=== PATIENT | male | born 1975 | race Two or more races ===

== ENCOUNTER 2021-06-07 22:49 | Inpatient (IN) | payer MEDICAID, OTHER ==
[~2021-06-07] VITALS: Ht 177.8 cm; Wt 84.8 kg
[2021-06-07] MEDS ORDERED: SODIUM CHLORIDE 0.9% 1000ML BAG (SEPSIS BOLUS) IV ONE (23:30)
[2021-06-07 23:39] LABS: CHLORIDE 114 mEq/L (98-107); HEMOGLOBIN. 12.3 g/dL (14.0-18.0); MEAN CORPUSCULAR HEMOGLOBIN 29.9 pg (28.0-32.0); MEAN CORPUSCULAR VOLUME 89.9 fL (80.0-94.0); MEAN PLATELET VOLUME 8.2 fl (7.4-10.4); PLATELET 283 x1000/uL (130-400); RED BLOOD CELL COUNT 4.11 mill/uL (4.7-6.1); RED CELL DISTRIBUTION WIDTH 14.3 % (11.6-14.6)
[2021-06-07 23:43] LABS: ETHANOL BLOOD < 10 mg/dL
[2021-06-08] MEDS ORDERED: PIPERACILLIN/TAZOBACTAM 3.375GM/50ML PREMIX IV SCH (00:15)
[2021-06-08] MEDS ORDERED: VANCOMYCIN 1G PREMIX 200 ML IV SCH (00:15)
[2021-06-08 02:59] LABS: PLATELET ESTIMATE NORMAL
[2021-06-08] MEDS ORDERED: ACETAMINOPHEN 650MG SUPP PR ONE (03:30)
[2021-06-08] MEDS ORDERED: LORAZEPAM 2MG/ML CPJ IV PRN ×2 (07:45→09:15)
[2021-06-08] MEDS ORDERED: ONDANSETRON HCL 4MG/2ML INJ IV PRN (07:45)
[2021-06-08] MEDS ORDERED: ENOXAPARIN 40MG/0.4ML SYR SUBCUT SCH (07:45)
[2021-06-08] MEDS ORDERED: CLONIDINE 0.1MG TABLET PO PRN (07:45)
[2021-06-08] MEDS ORDERED: NALOXONE HCL 0.4MG/ML VIAL IV PRN ×2 (08:15→08:30)
[2021-06-08] MEDS: SODIUM CHLORIDE 0.9% 1,000 ML IV SCH ×2 (08:34→17:45)
[2021-06-08] MEDS: FOLIC ACID 1MG TABLET PO SCH (08:35)
[2021-06-08] MEDS: LEVOFLOXACIN 500MG PREMIX 100 ML IV SCH (08:35)
[2021-06-08] MEDS: ENOXAPARIN 30MG/0.3ML SYR SUBCUT SCH (09:00)
[2021-06-08] MEDS ORDERED: LEVETIRACETAM 500MG PREMIX 100 ML IV NR (09:15)
[2021-06-08 13:29] LABS: CLARITY URINE TURBID (CLEAR); COLOR URINE YELLOW (YELLOW); KETONES URINE 1+ (NEGATIVE); LEUKOCYTE ESTERASE URINE NEGATIVE (NEGATIVE); NITRITE URINE NEGATIVE (NEGATIVE); OCCULT BLOOD URINE NEGATIVE (NEGATIVE); PH URINE 5.5 (4.5-8.0); PROTEIN URINE NEGATIVE (NEGATIVE); SPECIFIC GRAVITY URINE 1.026 (1.005-1.030); UROBILINOGEN URINE 0.2 E.U./dL (0.2-1.0)
[2021-06-08 14:34] LABS: *AMPHETAMINES SCREEN URINE NEGATIVE (NEGATIVE); *BARBITURATES SCREEN URINE NEGATIVE (NEGATIVE); *BENZODIAZEPINES SCREEN URINE NEGATIVE (NEGATIVE); *COCAINE SCREEN URINE NEGATIVE (NEGATIVE); CANNABINOID URINE SCREEN NEGATIVE (NEGATIVE); METHADONE URINE SCREEN NEGATIVE (NEGATIVE); OPIATES URINE SCREEN NEGATIVE (NEGATIVE); PHENCYCLIDINE URINE SCREEN NEGATIVE (NEGATIVE)
[2021-06-08 14:59] LABS: CREATINE KINASE MB FRACTION 3.6 ng/mL (0.5-3.6)
[2021-06-08 15:09] LABS: CREATINE KINASE 2094 IU/L (39-308)
[2021-06-08] MEDS ORDERED: IPRATROPIUM BROMIDE (0.02%) 0.5MG/2.5ML NEB HHN PRN (18:15)
[2021-06-08] MEDS ORDERED: ALBUTEROL (0.5%) 2.5MG/0.5ML NEB HHN PRN (18:15)
[2021-06-08] MEDS: IPRATROPIUM/ALBUTEROL 0.5-3(2.5)MG/3ML NEB HHN PRN (19:20)
[2021-06-08 22:24] LABS: CREATINE KINASE MB FRACTION 3.8 ng/mL (0.5-3.6)
[2021-06-08 22:35] LABS: CREATINE KINASE 2851 IU/L (39-308)
[2021-06-09] VITALS (8 sets, daily range): BP systolic 119–144; BP diastolic 69–88
[2021-06-09] MEDS: SODIUM CHLORIDE 0.9% 1,000 ML IV SCH ×4 (01:37→22:31)
[2021-06-09] MEDS: MORPHINE SULFATE 2 MG/ML CPJ (NOT FOR IM USE) IV PRN ×2 (01:38→22:40)
[2021-06-09] MEDS: FOLIC ACID 1MG TABLET PO SCH (08:54)
[2021-06-09] MEDS: ENOXAPARIN 30MG/0.3ML SYR SUBCUT SCH (10:44)
[2021-06-09 11:00] LABS: BASOPHILS % 0.1 % (0.0-2.0); EOSINOPHILS % 0.1 % (0.0-5.0); HEMATOCRIT. 36.6 % (42.0-52.0); HEMOGLOBIN. 12.1 g/dL (14.0-18.0); LYMPHOCYTES % 8.7 % (20.0-50.0); MEAN CORPUSCULAR HEMOGLOBIN 29.8 pg (28.0-32.0); MEAN CORPUSCULAR VOLUME 90.4 fL (80.0-94.0); MEAN PLATELET VOLUME 8.3 fl (7.4-10.4); MONOCYTES % 7.1 % (2.0-8.0); PLATELET 232 x1000/uL (130-400); RED BLOOD CELL COUNT 4.05 mill/uL (4.7-6.1); RED CELL DISTRIBUTION WIDTH 13.8 % (11.6-14.6)
[2021-06-09 11:08] LABS: CHLORIDE 109 mEq/L (98-107)
[2021-06-09 11:14] LABS: PHOSPHORUS 2.1 mg/dL (2.5-4.9)
[2021-06-09] MEDS: LEVOFLOXACIN 500MG PREMIX 100 ML IV SCH (11:20)
[2021-06-09] MEDS: IPRATROPIUM/ALBUTEROL 0.5-3(2.5)MG/3ML NEB HHN PRN (12:18)
[2021-06-09] MEDS: POTASSIUM CHLORIDE 20MEQ TABLET SR PO SCH (13:03)
[2021-06-09] MEDS: METHYLPREDNISOLONE SOD SUCC 125 MG/2 ML VIAL IV SCH ×2 (13:29→22:32)
[2021-06-09] MEDS: VANCOMYCIN 1G PREMIX 200 ML IV SCH (16:12)
[2021-06-10] VITALS: BP 138/96
[2021-06-10] MEDS: VANCOMYCIN 1G PREMIX 200 ML IV SCH ×2 (00:14→09:05)
[2021-06-10] MEDS: IPRATROPIUM/ALBUTEROL 0.5-3(2.5)MG/3ML NEB HHN PRN ×2 (00:57→12:49)
[2021-06-10] MEDS: ACETAMINOPHEN 325MG TABLET PO PRN ×3 (01:10→20:44)
[2021-06-10 04:00] VITALS: BP 125/78
[2021-06-10] MEDS: SODIUM CHLORIDE 0.9% 1,000 ML IV SCH ×3 (06:01→22:30)
[2021-06-10] MEDS: METHYLPREDNISOLONE SOD SUCC 125 MG/2 ML VIAL IV SCH (06:02)
[2021-06-10 08:00] VITALS: BP 127/79
[2021-06-10] MEDS: POTASSIUM CHLORIDE 20MEQ TABLET SR PO SCH (09:04)
[2021-06-10] MEDS: ENOXAPARIN 40MG/0.4ML SYR SUBCUT SCH (09:04)
[2021-06-10] MEDS: FOLIC ACID 1MG TABLET PO SCH (09:05)
[2021-06-10] MEDS: MORPHINE SULFATE 2 MG/ML CPJ (NOT FOR IM USE) IV PRN ×2 (09:06→15:03)
[2021-06-10 10:32] LABS: CHLORIDE 108 mEq/L (98-107)
[2021-06-10 12:00] VITALS: BP 147/83
[2021-06-10] MEDS: LEVOFLOXACIN 500MG PREMIX 100 ML IV SCH ×2 (12:28→12:33)
[2021-06-10 15:22] LABS: CREATINE KINASE 1087 IU/L (39-308)
[2021-06-10 16:00] VITALS: BP 119/68
[2021-06-10 20:00] VITALS: BP 125/74
[2021-06-10] MEDS: LEVETIRACETAM 500MG TABLET PO SCH (20:44)
[2021-06-11] VITALS: BP 124/79
[2021-06-11] MEDS: ACETAMINOPHEN 325MG TABLET PO PRN (00:19)
[2021-06-11 04:00] VITALS: BP 121/79
[2021-06-11 08:00] VITALS: BP 113/73
[2021-06-11] MEDS: HYDROCODONE/ACETAMINOPHEN 5/325MG TABLET PO PRN ×2 (08:47→16:15)
[2021-06-11] MEDS: LEVETIRACETAM 500MG TABLET PO SCH ×2 (08:47→20:54)
[2021-06-11] MEDS: FOLIC ACID 1MG TABLET PO SCH (08:47)
[2021-06-11] MEDS: ENOXAPARIN 40MG/0.4ML SYR SUBCUT SCH (08:47)
[2021-06-11] MEDS: POTASSIUM CHLORIDE 20MEQ TABLET SR PO SCH (08:48)
[2021-06-11] MEDS: SODIUM CHLORIDE 0.9% 1,000 ML IV SCH (10:10)
[2021-06-11] MEDS: LEVOFLOXACIN 500MG PREMIX 100 ML IV SCH (10:11)
[2021-06-11 12:00] VITALS: BP 102/62
[2021-06-11 16:00] VITALS: BP 121/78
[2021-06-11 20:00] VITALS: BP 137/82
[2021-06-12] VITALS: BP 139/91
[2021-06-12 04:00] VITALS: BP 118/69
[2021-06-12] MEDS: SODIUM CHLORIDE 0.9% 1,000 ML IV SCH (05:49)
[2021-06-12] MEDS: FOLIC ACID 1MG TABLET PO SCH (08:17)
[2021-06-12] MEDS: LEVETIRACETAM 500MG TABLET PO SCH ×2 (08:17→20:06)
[2021-06-12] MEDS: LEVOFLOXACIN 500MG PREMIX 100 ML IV SCH (08:17)
[2021-06-12] MEDS: POTASSIUM CHLORIDE 20MEQ TABLET SR PO SCH (08:17)
[2021-06-12] MEDS: ENOXAPARIN 40MG/0.4ML SYR SUBCUT SCH (08:21)
[2021-06-12 08:33] VITALS: BP 127/84
[2021-06-12 12:00] VITALS: BP 132/81
[2021-06-12 16:00] VITALS: BP 133/87
[2021-06-12 20:00] VITALS: BP 128/82
[2021-06-13] VITALS: BP 119/80
[2021-06-13] MEDS: SODIUM CHLORIDE 0.9% 1,000 ML IV SCH ×2 (02:10→21:14)
[2021-06-13 04:00] VITALS: BP 127/87
[2021-06-13 08:00] VITALS: BP 96/64
[2021-06-13] MEDS: FOLIC ACID 1MG TABLET PO SCH (09:53)
[2021-06-13] MEDS: POTASSIUM CHLORIDE 20MEQ TABLET SR PO SCH (09:53)
[2021-06-13] MEDS: LEVETIRACETAM 500MG TABLET PO SCH ×2 (09:53→20:17)
[2021-06-13] MEDS: ENOXAPARIN 40MG/0.4ML SYR SUBCUT SCH (09:54)
[2021-06-13 12:00] VITALS: BP 112/73
[2021-06-13 13:26] LABS: BASOPHILS % 0.2 % (0.0-2.0); EOSINOPHILS % 2.2 % (0.0-5.0); HEMATOCRIT. 40.9 % (42.0-52.0); HEMOGLOBIN. 13.1 g/dL (14.0-18.0); LYMPHOCYTES % 12.2 % (20.0-50.0); MEAN CORPUSCULAR HEMOGLOBIN 28.7 pg (28.0-32.0); MEAN CORPUSCULAR VOLUME 89.6 fL (80.0-94.0); MEAN PLATELET VOLUME 8.3 fl (7.4-10.4); MONOCYTES % 9.6 % (2.0-8.0); NEUTROPHILS % 75.8 % (40.0-76.0); PLATELET 236 x1000/uL (130-400); RED BLOOD CELL COUNT 4.56 mill/uL (4.7-6.1); RED CELL DISTRIBUTION WIDTH 13.9 % (11.6-14.6)
[2021-06-13 13:39] LABS: CHLORIDE 106 mEq/L (98-107)
[2021-06-13 16:00] VITALS: BP 112/68
[2021-06-13 20:00] VITALS: BP 115/73
[2021-06-14] VITALS: BP 110/76
[2021-06-14 04:00] VITALS: BP 116/72
[2021-06-14 08:00] VITALS: BP 107/74
[2021-06-14] MEDS: LEVETIRACETAM 500MG TABLET PO SCH ×2 (09:10→21:28)
[2021-06-14] MEDS: FOLIC ACID 1MG TABLET PO SCH (09:10)
[2021-06-14] MEDS: POTASSIUM CHLORIDE 20MEQ TABLET SR PO SCH (09:10)
[2021-06-14] MEDS: ENOXAPARIN 40MG/0.4ML SYR SUBCUT SCH (09:11)
[2021-06-14 12:00] VITALS: BP 106/69
[2021-06-14 16:00] VITALS: BP 113/78
[2021-06-14] MEDS: SODIUM CHLORIDE 0.9% 1,000 ML IV SCH (17:56)
[2021-06-14 20:00] VITALS: BP 113/78
[2021-06-15] VITALS: BP 130/86
[2021-06-15 04:00] VITALS: BP 130/77
[2021-06-15 08:00] VITALS: BP 104/67
[2021-06-15] MEDS: ENOXAPARIN 40MG/0.4ML SYR SUBCUT SCH (10:27)
[2021-06-15] MEDS: FOLIC ACID 1MG TABLET PO SCH (10:27)
[2021-06-15] MEDS: LEVETIRACETAM 500MG TABLET PO SCH ×2 (10:27→21:35)
[2021-06-15] MEDS: POTASSIUM CHLORIDE 20MEQ TABLET SR PO SCH (10:27)
[2021-06-15 12:00] VITALS: BP 119/82
[2021-06-15] MEDS: SODIUM CHLORIDE 0.9% 1,000 ML IV SCH (13:23)
[2021-06-15 16:00] VITALS: BP 117/82
[2021-06-15 20:00] VITALS: BP 119/84
[2021-06-16] VITALS: BP 130/80
[2021-06-16 04:00] VITALS: BP 126/89
[2021-06-16 07:35] LABS: BASOPHILS % 0.5 % (0.0-2.0); EOSINOPHILS % 2.4 % (0.0-5.0); HEMATOCRIT. 40.4 % (42.0-52.0); HEMOGLOBIN. 13.6 g/dL (14.0-18.0); LYMPHOCYTES % 16.9 % (20.0-50.0); MEAN CORPUSCULAR HEMOGLOBIN 29.6 pg (28.0-32.0); MEAN CORPUSCULAR VOLUME 87.8 fL (80.0-94.0); MEAN PLATELET VOLUME 8.5 fl (7.4-10.4); MONOCYTES % 10.5 % (2.0-8.0); NEUTROPHILS % 69.7 % (40.0-76.0); PLATELET 238 x1000/uL (130-400); RED BLOOD CELL COUNT 4.61 mill/uL (4.7-6.1); RED CELL DISTRIBUTION WIDTH 13.2 % (11.6-14.6)
[2021-06-16 08:00] VITALS: BP 106/60
[2021-06-16 08:31] LABS: CHLORIDE 106 mEq/L (98-107)
[2021-06-16 08:41] LABS: PHOSPHORUS 3.2 mg/dL (2.5-4.9)
[2021-06-16] MEDS: POTASSIUM CHLORIDE 20MEQ TABLET SR PO SCH (09:49)
[2021-06-16] MEDS: ENOXAPARIN 40MG/0.4ML SYR SUBCUT SCH (09:49)
[2021-06-16] MEDS: LEVETIRACETAM 500MG TABLET PO SCH ×2 (09:49→20:05)
[2021-06-16] MEDS: FOLIC ACID 1MG TABLET PO SCH (09:49)
[2021-06-16] MEDS: SODIUM CHLORIDE 0.9% 1,000 ML IV SCH (09:53)
[2021-06-16 12:00] VITALS: BP 122/81
[2021-06-16 16:00] VITALS: BP 96/56
[2021-06-16 20:00] VITALS: BP 121/77
[2021-06-17] VITALS: BP 108/67
[2021-06-17 04:00] VITALS: BP 111/68
[2021-06-17] MEDS: SODIUM CHLORIDE 0.9% 1,000 ML IV SCH (06:10)
[2021-06-17 08:00] VITALS: BP 121/76
[2021-06-17] MEDS: ENOXAPARIN 40MG/0.4ML SYR SUBCUT SCH (09:59)
[2021-06-17] MEDS: FOLIC ACID 1MG TABLET PO SCH (09:59)
[2021-06-17] MEDS: LEVETIRACETAM 500MG TABLET PO SCH ×2 (09:59→20:46)
[2021-06-17] MEDS: POTASSIUM CHLORIDE 20MEQ TABLET SR PO SCH (09:59)
[2021-06-17 12:00] VITALS: BP 115/70
[2021-06-17 16:00] VITALS: BP 118/72
[2021-06-17 20:00] VITALS: BP 115/82
[2021-06-18] VITALS: BP 116/72
[2021-06-18] MEDS: SODIUM CHLORIDE 0.9% 1,000 ML IV SCH ×2 (01:40→21:10)
[2021-06-18 04:00] VITALS: BP 117/81
[2021-06-18 08:00] VITALS: BP 133/85
[2021-06-18] MEDS: ENOXAPARIN 40MG/0.4ML SYR SUBCUT SCH (09:50)
[2021-06-18] MEDS: LEVETIRACETAM 500MG TABLET PO SCH ×2 (09:50→21:08)
[2021-06-18] MEDS: POTASSIUM CHLORIDE 20MEQ TABLET SR PO SCH (09:50)
[2021-06-18] MEDS: FOLIC ACID 1MG TABLET PO SCH (09:50)
[2021-06-18 12:00] VITALS: BP 101/69
[2021-06-18] MEDS: ACETAMINOPHEN 325MG TABLET PO PRN (13:13)
[2021-06-18 16:00] VITALS: BP 110/73
[2021-06-18 20:00] VITALS: BP 104/68
[2021-06-19] VITALS: BP 106/70
[2021-06-19 04:00] VITALS: BP 100/73
[2021-06-19 07:47] VITALS: BP 120/72
[2021-06-19] MEDS: LEVETIRACETAM 500MG TABLET PO SCH ×2 (08:41→20:36)
[2021-06-19] MEDS: FOLIC ACID 1MG TABLET PO SCH (08:41)
[2021-06-19] MEDS: ENOXAPARIN 40MG/0.4ML SYR SUBCUT SCH (08:41)
[2021-06-19] MEDS: POTASSIUM CHLORIDE 20MEQ TABLET SR PO SCH (08:41)
[2021-06-19 12:00] VITALS: BP 110/71
[2021-06-19 15:35] VITALS: BP 131/71
[2021-06-19] MEDS: SODIUM CHLORIDE 0.9% 1,000 ML IV SCH (17:12)
[2021-06-19 20:00] VITALS: BP 114/78
[2021-06-20] VITALS: BP 110/69
[2021-06-20 04:00] VITALS: BP 117/72
[2021-06-20 08:00] VITALS: BP 114/79
[2021-06-20] MEDS: FOLIC ACID 1MG TABLET PO SCH (11:37)
[2021-06-20] MEDS: LEVETIRACETAM 500MG TABLET PO SCH ×2 (11:37→20:17)
[2021-06-20] MEDS: POTASSIUM CHLORIDE 20MEQ TABLET SR PO SCH (11:37)
[2021-06-20] MEDS: ENOXAPARIN 40MG/0.4ML SYR SUBCUT SCH (11:42)
[2021-06-20 12:00] VITALS: BP 114/79
[2021-06-20 16:00] VITALS: BP 120/68
[2021-06-20 20:00] VITALS: BP 115/64
[2021-06-21] VITALS: BP 134/92
[2021-06-21 04:00] VITALS: BP 132/98
[2021-06-21 07:25] LABS: BASOPHILS % 0.2 % (0.0-2.0); EOSINOPHILS % 0.9 % (0.0-5.0); HEMATOCRIT. 41.7 % (42.0-52.0); HEMOGLOBIN. 14.3 g/dL (14.0-18.0); LYMPHOCYTES % 13.6 % (20.0-50.0); MEAN CORPUSCULAR HEMOGLOBIN 29.7 pg (28.0-32.0); MEAN CORPUSCULAR VOLUME 86.8 fL (80.0-94.0); MEAN PLATELET VOLUME 8.7 fl (7.4-10.4); MONOCYTES % 6.6 % (2.0-8.0); NEUTROPHILS % 78.7 % (40.0-76.0); PLATELET 235 x1000/uL (130-400); RED BLOOD CELL COUNT 4.81 mill/uL (4.7-6.1); RED CELL DISTRIBUTION WIDTH 13.4 % (11.6-14.6)
[2021-06-21 07:47] LABS: CHLORIDE 104 mEq/L (98-107)
[2021-06-21 07:55] LABS: PHOSPHORUS 3.2 mg/dL (2.5-4.9)
[2021-06-21 08:00] VITALS: BP 143/74
[2021-06-21] MEDS: ENOXAPARIN 40MG/0.4ML SYR SUBCUT SCH (09:25)
[2021-06-21] MEDS: LEVETIRACETAM 500MG TABLET PO SCH ×2 (09:25→21:40)
[2021-06-21] MEDS: FOLIC ACID 1MG TABLET PO SCH (09:26)
[2021-06-21] MEDS: ACETAMINOPHEN 325MG TABLET PO PRN (09:37)
[2021-06-21 12:00] VITALS: BP 118/74
[2021-06-21 16:00] VITALS: BP 129/80
[2021-06-21] MEDS: IPRATROPIUM/ALBUTEROL 0.5-3(2.5)MG/3ML NEB HHN PRN (17:23)
[2021-06-21 20:00] VITALS: BP 121/77
[2021-06-22] VITALS: BP 120/78
[2021-06-22 04:00] VITALS: BP 115/67
[2021-06-22 08:00] VITALS: BP 133/94
[2021-06-22] MEDS: LEVETIRACETAM 500MG TABLET PO SCH ×2 (08:55→22:03)
[2021-06-22] MEDS: FOLIC ACID 1MG TABLET PO SCH (08:55)
[2021-06-22] MEDS: ENOXAPARIN 40MG/0.4ML SYR SUBCUT SCH (08:55)
[2021-06-22 12:00] VITALS: BP 111/72
[2021-06-22 16:00] VITALS: BP 115/84
[2021-06-22 20:00] VITALS: BP 127/86
[2021-06-23] VITALS: BP 126/82
[2021-06-23 04:00] VITALS: BP 130/84
[2021-06-23] MEDS: ACETAMINOPHEN 325MG TABLET PO PRN ×2 (06:24→12:14)
[2021-06-23 08:00] VITALS: BP 111/75
[2021-06-23] MEDS: FOLIC ACID 1MG TABLET PO SCH (08:38)
[2021-06-23] MEDS: LEVETIRACETAM 500MG TABLET PO SCH ×2 (08:38→21:16)
[2021-06-23] MEDS: ENOXAPARIN 40MG/0.4ML SYR SUBCUT SCH (08:39)
[2021-06-23 11:54] VITALS: BP 140/74
[2021-06-23 16:00] VITALS: BP 128/62
[2021-06-23 20:00] VITALS: BP 117/77
[2021-06-24] VITALS: BP 122/82
[2021-06-24 04:00] VITALS: BP 124/70
[2021-06-24 08:00] VITALS: BP 121/88
[2021-06-24] MEDS: LEVETIRACETAM 500MG TABLET PO SCH ×2 (09:56→21:08)
[2021-06-24] MEDS: FOLIC ACID 1MG TABLET PO SCH (09:56)
[2021-06-24] MEDS: ENOXAPARIN 40MG/0.4ML SYR SUBCUT SCH (09:57)
[2021-06-24 12:00] VITALS: BP 117/78
[2021-06-24 16:00] VITALS: BP 117/74
[2021-06-24 20:00] VITALS: BP 115/79
[2021-06-25] VITALS: BP 124/83
[2021-06-25 04:00] VITALS: BP 126/78
[2021-06-25 08:00] VITALS: BP 120/82
[2021-06-25] MEDS: ACETAMINOPHEN 325MG TABLET PO PRN ×2 (09:55→18:52)
[2021-06-25] MEDS: FOLIC ACID 1MG TABLET PO SCH (09:55)
[2021-06-25] MEDS: ENOXAPARIN 40MG/0.4ML SYR SUBCUT SCH (09:55)
[2021-06-25] MEDS: LEVETIRACETAM 500MG TABLET PO SCH ×2 (09:55→21:16)
[2021-06-25 12:00] VITALS: BP 110/56
[2021-06-25 16:00] VITALS: BP 120/80
[2021-06-25 20:00] VITALS: BP 114/76
[2021-06-26] VITALS: BP 114/76
[2021-06-26 04:00] VITALS: BP 124/81
[2021-06-26 07:22] LABS: BASOPHILS % 0.4 % (0.0-2.0); EOSINOPHILS % 1.5 % (0.0-5.0); HEMATOCRIT. 41.3 % (42.0-52.0); HEMOGLOBIN. 13.8 g/dL (14.0-18.0); LYMPHOCYTES % 18.8 % (20.0-50.0); MEAN CORPUSCULAR HEMOGLOBIN 29.1 pg (28.0-32.0); MEAN CORPUSCULAR VOLUME 86.7 fL (80.0-94.0); MEAN PLATELET VOLUME 8.5 fl (7.4-10.4); MONOCYTES % 8.2 % (2.0-8.0); NEUTROPHILS % 71.1 % (40.0-76.0); PLATELET 233 x1000/uL (130-400); RED BLOOD CELL COUNT 4.76 mill/uL (4.7-6.1); RED CELL DISTRIBUTION WIDTH 13.5 % (11.6-14.6)
[2021-06-26 07:31] LABS: CHLORIDE 105 mEq/L (98-107)
[2021-06-26 08:00] VITALS: BP 118/79
[2021-06-26] MEDS: LEVETIRACETAM 500MG TABLET PO SCH ×2 (09:57→20:17)
[2021-06-26] MEDS: ENOXAPARIN 40MG/0.4ML SYR SUBCUT SCH (09:57)
[2021-06-26] MEDS: FOLIC ACID 1MG TABLET PO SCH (09:58)
[2021-06-26 12:00] VITALS: BP 126/77
[2021-06-26 16:00] VITALS: BP 118/66
[2021-06-26 20:00] VITALS: BP 126/74
[2021-06-26] MEDS: ACETAMINOPHEN 325MG TABLET PO PRN (20:17)
[2021-06-26] MEDS: IPRATROPIUM/ALBUTEROL 0.5-3(2.5)MG/3ML NEB HHN PRN (22:56)
[2021-06-27] VITALS: BP 112/70
[2021-06-27 04:00] VITALS: BP 124/81
[2021-06-27 07:59] VITALS: BP 135/84
[2021-06-27] MEDS: LEVETIRACETAM 500MG TABLET PO SCH ×2 (08:24→20:56)
[2021-06-27] MEDS: FOLIC ACID 1MG TABLET PO SCH (08:24)
[2021-06-27] MEDS: ENOXAPARIN 40MG/0.4ML SYR SUBCUT SCH (08:25)
[2021-06-27 11:32] VITALS: BP 127/73
[2021-06-27 15:41] VITALS: BP 118/74
[2021-06-27 20:00] VITALS: BP 123/78
[2021-06-27] MEDS: ACETAMINOPHEN 325MG TABLET PO PRN (20:56)
[2021-06-28] VITALS: BP 110/74
[2021-06-28 04:00] VITALS: BP 123/71
[2021-06-28 08:00] VITALS: BP 109/62
[2021-06-28] MEDS: FOLIC ACID 1MG TABLET PO SCH (08:28)
[2021-06-28] MEDS: LEVETIRACETAM 500MG TABLET PO SCH ×2 (08:28→21:44)
[2021-06-28] MEDS: ENOXAPARIN 40MG/0.4ML SYR SUBCUT SCH (08:28)
[2021-06-28 12:00] VITALS: BP 133/69
[2021-06-28 16:07] VITALS: BP 109/69
[2021-06-28 20:00] VITALS: BP 112/73
[2021-06-28] MEDS: ACETAMINOPHEN 325MG TABLET PO PRN (23:54)
[2021-06-29] VITALS: BP 118/76
[2021-06-29 04:00] VITALS: BP 132/87
[2021-06-29 08:04] VITALS: BP 120/77
[2021-06-29] MEDS: FOLIC ACID 1MG TABLET PO SCH (08:13)
[2021-06-29] MEDS: ENOXAPARIN 40MG/0.4ML SYR SUBCUT SCH (08:13)
[2021-06-29] MEDS: LEVETIRACETAM 500MG TABLET PO SCH ×2 (08:13→21:56)
[2021-06-29 12:00] VITALS: BP 115/75
[2021-06-29 16:00] VITALS: BP 114/70
[2021-06-29 20:00] VITALS: BP 111/74
[2021-06-30] VITALS: BP 116/74
[2021-06-30 04:00] VITALS: BP 130/89
[2021-06-30 08:00] VITALS: BP 130/88
[2021-06-30] MEDS: FOLIC ACID 1MG TABLET PO SCH (08:39)
[2021-06-30] MEDS: ENOXAPARIN 40MG/0.4ML SYR SUBCUT SCH (08:39)
[2021-06-30] MEDS: LEVETIRACETAM 500MG TABLET PO SCH ×2 (08:39→21:00)
[2021-06-30 12:00] VITALS: BP 129/88
[2021-06-30 16:00] VITALS: BP 125/78
[2021-06-30 20:00] VITALS: BP 128/87
[2021-07-01] VITALS: BP 122/83
[2021-07-01 04:00] VITALS: BP 116/80
[2021-07-01 08:00] VITALS: BP 114/76
[2021-07-01] MEDS: ENOXAPARIN 40MG/0.4ML SYR SUBCUT SCH (08:31)
[2021-07-01] MEDS: LEVETIRACETAM 500MG TABLET PO SCH ×2 (08:32→20:34)
[2021-07-01] MEDS: FOLIC ACID 1MG TABLET PO SCH (08:32)
[2021-07-01 12:00] VITALS: BP 127/88
[2021-07-01 16:00] VITALS: BP 136/79
[2021-07-01 20:00] VITALS: BP 122/72
[2021-07-02] VITALS: BP 112/72
[2021-07-02 04:00] VITALS: BP 125/82
[2021-07-02 08:00] VITALS: BP 129/83
[2021-07-02] MEDS: ENOXAPARIN 40MG/0.4ML SYR SUBCUT SCH (09:20)
[2021-07-02] MEDS: LEVETIRACETAM 500MG TABLET PO SCH ×2 (09:20→22:14)
[2021-07-02] MEDS: FOLIC ACID 1MG TABLET PO SCH (09:20)
[2021-07-02 12:00] VITALS: BP 111/75
[2021-07-02 16:00] VITALS: BP 110/69
[2021-07-02 20:00] VITALS: BP 112/67
[2021-07-03] VITALS: BP 118/76
[2021-07-03 04:00] VITALS: BP 124/79
[2021-07-03 08:00] VITALS: BP 118/78
[2021-07-03] MEDS: ENOXAPARIN 40MG/0.4ML SYR SUBCUT SCH (09:41)
[2021-07-03] MEDS: LEVETIRACETAM 500MG TABLET PO SCH ×2 (09:41→21:23)
[2021-07-03] MEDS: FOLIC ACID 1MG TABLET PO SCH (09:41)
[2021-07-03 12:00] VITALS: BP 110/74
[2021-07-03 16:00] VITALS: BP 107/72
[2021-07-03 20:00] VITALS: BP 156/100
[2021-07-04] VITALS: BP 139/110
[2021-07-04] MEDS: ACETAMINOPHEN 325MG TABLET PO PRN ×3 (00:03→18:01)
[2021-07-04 04:00] VITALS: BP 137/90
[2021-07-04 07:30] LABS: HEMOGLOBIN. 14.6 g/dL (14.0-18.0); MEAN CORPUSCULAR VOLUME 85.5 fL (80.0-94.0); MEAN PLATELET VOLUME 8.5 fl (7.4-10.4); PLATELET 281 x1000/uL (130-400); RED BLOOD CELL COUNT 5.03 mill/uL (4.7-6.1); RED CELL DISTRIBUTION WIDTH 13.8 % (11.6-14.6)
[2021-07-04 07:42] LABS: CHLORIDE 105 mEq/L (98-107)
[2021-07-04 08:00] VITALS: BP 141/91
[2021-07-04] MEDS: LEVETIRACETAM 500MG TABLET PO SCH ×2 (08:43→20:40)
[2021-07-04] MEDS: ENOXAPARIN 40MG/0.4ML SYR SUBCUT SCH (08:43)
[2021-07-04] MEDS: FOLIC ACID 1MG TABLET PO SCH (08:43)
[2021-07-04 11:57] VITALS: BP 141/84
[2021-07-04 15:09] LABS: PLATELET ESTIMATE NORMAL
[2021-07-04 16:00] VITALS: BP 124/85
[2021-07-04 20:00] VITALS: BP 136/88
[2021-07-04] MEDS ORDERED: NALOXONE HCL 0.4MG/ML VIAL IV PRN (21:00)
[2021-07-04] MEDS: MORPHINE SULFATE 2 MG/ML CPJ (NOT FOR IM USE) IV PRN (21:33)
[2021-07-05] VITALS: BP 143/100
[2021-07-05] MEDS: ACETAMINOPHEN 325MG TABLET PO PRN (00:35)
[2021-07-05 04:00] VITALS: BP 143/100
[2021-07-05 08:00] VITALS: BP 133/87
[2021-07-05] MEDS: ENOXAPARIN 40MG/0.4ML SYR SUBCUT SCH (09:22)
[2021-07-05] MEDS: LEVETIRACETAM 500MG TABLET PO SCH ×2 (09:23→21:26)
[2021-07-05] MEDS: FOLIC ACID 1MG TABLET PO SCH (09:23)
[2021-07-05 12:00] VITALS: BP 112/77
[2021-07-05] MEDS: MORPHINE SULFATE 2 MG/ML CPJ (NOT FOR IM USE) IV PRN (14:41)
[2021-07-05 16:00] VITALS: BP 130/84
[2021-07-05 20:00] VITALS: BP 103/62
[2021-07-06] VITALS: BP 99/61
[2021-07-06 04:00] VITALS: BP 101/59
[2021-07-06 08:00] VITALS: BP 114/69
[2021-07-06] MEDS: ENOXAPARIN 40MG/0.4ML SYR SUBCUT SCH (09:23)
[2021-07-06] MEDS: FOLIC ACID 1MG TABLET PO SCH ×2 (09:23→09:25)
[2021-07-06] MEDS: LEVETIRACETAM 500MG TABLET PO SCH ×2 (09:23→20:54)
[2021-07-06] MEDS: DOCUSATE SODIUM 250MG CAPSULE PO SCH (09:23)
[2021-07-06] MEDS: HYDROCODONE/ACETAMINOPHEN 5/325MG TABLET PO PRN ×2 (09:36→20:54)
[2021-07-06 16:00] VITALS: BP 97/55
[2021-07-06 20:00] VITALS: BP 100/69
[2021-07-07] VITALS: BP 103/61
[2021-07-07 04:00] VITALS: BP 110/75
[2021-07-07 08:00] VITALS: BP 115/75
[2021-07-07] MEDS: ENOXAPARIN 40MG/0.4ML SYR SUBCUT SCH (09:23)
[2021-07-07] MEDS: LEVETIRACETAM 500MG TABLET PO SCH ×2 (09:23→21:42)
[2021-07-07] MEDS: DOCUSATE SODIUM 250MG CAPSULE PO SCH (11:22)
[2021-07-07 12:00] VITALS: BP 110/71
[2021-07-07 16:17] VITALS: BP 120/80
[2021-07-07 20:00] VITALS: BP 114/71
[2021-07-08] VITALS: BP 125/82
[2021-07-08 04:00] VITALS: BP 142/96
[2021-07-08 08:00] VITALS: BP 132/89
[2021-07-08] MEDS: DOCUSATE SODIUM 250MG CAPSULE PO SCH (09:26)
[2021-07-08] MEDS: LEVETIRACETAM 500MG TABLET PO SCH ×2 (09:26→21:30)
[2021-07-08] MEDS: ENOXAPARIN 40MG/0.4ML SYR SUBCUT SCH (09:26)
[2021-07-08] MEDS: HYDROCODONE/ACETAMINOPHEN 5/325MG TABLET PO PRN (09:33)
[2021-07-08 12:00] VITALS: BP 121/80
[2021-07-08 16:00] VITALS: BP 114/72
[2021-07-08 20:33] VITALS: BP 121/73
[2021-07-09] VITALS: BP 121/83
[2021-07-09 04:00] VITALS: BP 116/83
[2021-07-09 08:00] VITALS: BP 116/82
[2021-07-09] MEDS: ENOXAPARIN 40MG/0.4ML SYR SUBCUT SCH (09:37)
[2021-07-09] MEDS: DOCUSATE SODIUM 250MG CAPSULE PO SCH (09:37)
[2021-07-09] MEDS: HYDROCODONE/ACETAMINOPHEN 5/325MG TABLET PO PRN (09:38)
[2021-07-09 12:00] VITALS: BP 114/73
[2021-07-09 16:00] VITALS: BP 112/77
[2021-07-09 20:00] VITALS: BP 121/76
[2021-07-10] VITALS: BP 108/77
[2021-07-10 04:00] VITALS: BP 111/74
[2021-07-10 08:00] VITALS: BP 117/76
[2021-07-10] MEDS: DOCUSATE SODIUM 250MG CAPSULE PO SCH (09:53)
[2021-07-10] MEDS: ENOXAPARIN 40MG/0.4ML SYR SUBCUT SCH (09:54)
[2021-07-10 12:00] VITALS: BP 113/69
[2021-07-10] MEDS: HYDROCODONE/ACETAMINOPHEN 5/325MG TABLET PO PRN (12:22)
[2021-07-10 16:00] VITALS: BP 124/70
[2021-07-10 20:00] VITALS: BP 102/65
[2021-07-11] VITALS: BP 114/75
[2021-07-11 04:00] VITALS: BP 107/71
[2021-07-11 08:00] VITALS: BP 113/72
[2021-07-11] MEDS: DOCUSATE SODIUM 250MG CAPSULE PO SCH (09:39)
[2021-07-11] MEDS: ENOXAPARIN 40MG/0.4ML SYR SUBCUT SCH (09:41)
[2021-07-11 12:00] VITALS: BP 115/72
[2021-07-11 16:00] VITALS: BP 120/78
[2021-07-11 20:00] VITALS: BP 116/71
[2021-07-12] VITALS: BP 120/79
[2021-07-12 04:00] VITALS: BP 113/98
[2021-07-12 06:56] LABS: BASOPHILS % 0.4 % (0.0-2.0); EOSINOPHILS % 1.7 % (0.0-5.0); HEMATOCRIT. 40.1 % (42.0-52.0); HEMOGLOBIN. 13.4 g/dL (14.0-18.0); LYMPHOCYTES % 17.7 % (20.0-50.0); MEAN CORPUSCULAR HEMOGLOBIN 28.8 pg (28.0-32.0); MEAN CORPUSCULAR VOLUME 86.2 fL (80.0-94.0); MEAN PLATELET VOLUME 8.4 fl (7.4-10.4); MONOCYTES % 8.2 % (2.0-8.0); PLATELET 244 x1000/uL (130-400); RED BLOOD CELL COUNT 4.65 mill/uL (4.7-6.1); RED CELL DISTRIBUTION WIDTH 13.8 % (11.6-14.6)
[2021-07-12 07:00] LABS: CHLORIDE 104 mEq/L (98-107)
[2021-07-12 08:00] VITALS: BP 105/70
[2021-07-12] MEDS: DOCUSATE SODIUM 250MG CAPSULE PO SCH (09:17)
[2021-07-12] MEDS: ENOXAPARIN 40MG/0.4ML SYR SUBCUT SCH (09:17)
[2021-07-12 12:00] VITALS: BP 96/59
[2021-07-12 16:00] VITALS: BP 113/71
[2021-07-12 20:00] VITALS: BP 103/61
[2021-07-13] VITALS: BP 99/61
[2021-07-13 04:00] VITALS: BP 101/63
[2021-07-13 08:00] VITALS: BP 105/68
[2021-07-13] MEDS: DOCUSATE SODIUM 250MG CAPSULE PO SCH (09:10)
[2021-07-13] MEDS: ENOXAPARIN 40MG/0.4ML SYR SUBCUT SCH (09:10)
[2021-07-13 12:00] VITALS: BP 108/65
[2021-07-13 16:00] VITALS: BP 109/63
[2021-07-13 20:00] VITALS: BP 103/57
[2021-07-14] VITALS: BP 100/57
[2021-07-14 04:00] VITALS: BP 106/76
[2021-07-14 08:00] VITALS: BP 120/4
[2021-07-14] MEDS: DOCUSATE SODIUM 250MG CAPSULE PO SCH (08:36)
[2021-07-14] MEDS: ENOXAPARIN 40MG/0.4ML SYR SUBCUT SCH (08:37)
[2021-07-14 12:00] VITALS: BP 105/70
[2021-07-14 16:00] VITALS: BP 111/70
[2021-07-14] MEDS: LEVETIRACETAM 500MG TABLET PO SCH (19:58)
[2021-07-14 20:00] VITALS: BP 105/63
[2021-07-15] VITALS: BP 125/75
[2021-07-15 04:00] VITALS: BP 131/87
[2021-07-15 08:00] VITALS: BP 126/85
[2021-07-15] MEDS: LEVETIRACETAM 500MG TABLET PO SCH ×2 (08:56→21:59)
[2021-07-15] MEDS: DOCUSATE SODIUM 250MG CAPSULE PO SCH (08:56)
[2021-07-15] MEDS: ENOXAPARIN 40MG/0.4ML SYR SUBCUT SCH (08:56)
[2021-07-15 12:00] VITALS: BP 105/66
[2021-07-15 16:00] VITALS: BP 109/68
[2021-07-15 20:00] VITALS: BP 98/63
[2021-07-16] VITALS: BP 105/65
[2021-07-16 04:00] VITALS: BP 101/63
[2021-07-16 08:00] VITALS: BP 107/63
[2021-07-16] MEDS: ENOXAPARIN 40MG/0.4ML SYR SUBCUT SCH (08:59)
[2021-07-16] MEDS: LEVETIRACETAM 500MG TABLET PO SCH ×2 (08:59→21:39)
[2021-07-16] MEDS: DOCUSATE SODIUM 250MG CAPSULE PO SCH (08:59)
[2021-07-16 12:00] VITALS: BP 107/60
[2021-07-16 16:00] VITALS: BP 113/69
[2021-07-16 20:00] VITALS: BP 111/63
[2021-07-17] VITALS: BP 111/70
[2021-07-17 04:00] VITALS: BP 98/71
[2021-07-17 08:00] VITALS: BP 118/67
[2021-07-17] MEDS: DOCUSATE SODIUM 250MG CAPSULE PO SCH (08:23)
[2021-07-17] MEDS: LEVETIRACETAM 500MG TABLET PO SCH ×2 (08:23→22:23)
[2021-07-17] MEDS: ENOXAPARIN 40MG/0.4ML SYR SUBCUT SCH (08:23)
[2021-07-17 12:00] VITALS: BP 109/65
[2021-07-17 16:00] VITALS: BP 104/69
[2021-07-17 20:00] VITALS: BP 94/58
[2021-07-18] VITALS: BP 99/61
[2021-07-18 04:00] VITALS: BP 109/62
[2021-07-18 08:00] VITALS: BP 101/65
[2021-07-18] MEDS: DOCUSATE SODIUM 250MG CAPSULE PO SCH (09:15)
[2021-07-18] MEDS: LEVETIRACETAM 500MG TABLET PO SCH ×2 (09:15→21:29)
[2021-07-18] MEDS: ENOXAPARIN 40MG/0.4ML SYR SUBCUT SCH (09:16)
[2021-07-18 12:00] VITALS: BP 108/71
[2021-07-18 16:00] VITALS: BP 99/56
[2021-07-18 20:00] VITALS: BP 110/64
[2021-07-19] VITALS: BP 110/65
[2021-07-19 04:00] VITALS: BP 103/64
[2021-07-19 08:00] VITALS: BP 109/69
[2021-07-19] MEDS: DOCUSATE SODIUM 250MG CAPSULE PO SCH (09:59)
[2021-07-19] MEDS: ENOXAPARIN 40MG/0.4ML SYR SUBCUT SCH (09:59)
[2021-07-19] MEDS: LEVETIRACETAM 500MG TABLET PO SCH ×2 (09:59→20:49)
[2021-07-19 12:00] VITALS: BP 105/64
[2021-07-19 16:00] VITALS: BP 124/78
[2021-07-19 20:00] VITALS: BP 117/73
[2021-07-20] VITALS: BP 103/68
[2021-07-20 04:00] VITALS: BP 102/66
[2021-07-20 08:00] VITALS: BP 105/62
[2021-07-20] MEDS: ENOXAPARIN 40MG/0.4ML SYR SUBCUT SCH (09:25)
[2021-07-20] MEDS: LEVETIRACETAM 500MG TABLET PO SCH ×2 (09:26→20:54)
[2021-07-20] MEDS: DOCUSATE SODIUM 250MG CAPSULE PO SCH (09:26)
[2021-07-20 12:00] VITALS: BP 104/65
[2021-07-20 16:00] VITALS: BP 108/70
[2021-07-21] VITALS: BP 102/61
[2021-07-21 04:00] VITALS: BP 100/61
[2021-07-21 08:00] VITALS: BP 104/69
[2021-07-21] MEDS: LEVETIRACETAM 500MG TABLET PO SCH ×2 (09:25→20:18)
[2021-07-21] MEDS: ENOXAPARIN 40MG/0.4ML SYR SUBCUT SCH (09:25)
[2021-07-21] MEDS: DOCUSATE SODIUM 250MG CAPSULE PO SCH (09:25)
[2021-07-21 12:00] VITALS: BP 96/54
[2021-07-21 16:00] VITALS: BP 107/62
[2021-07-21 20:00] VITALS: BP 106/67
[2021-07-22 04:00] VITALS: BP 107/68
[2021-07-22 08:00] VITALS: BP 91/61
[2021-07-22] MEDS: ENOXAPARIN 40MG/0.4ML SYR SUBCUT SCH (09:10)
[2021-07-22] MEDS: CITALOPRAM HYDROBROMIDE 10MG TABLET PO SCH (09:10)
[2021-07-22] MEDS: LEVETIRACETAM 500MG TABLET PO SCH ×2 (09:10→20:00)
[2021-07-22] MEDS: DOCUSATE SODIUM 250MG CAPSULE PO SCH (09:10)
[2021-07-22 12:00] VITALS: BP 100/59
[2021-07-22] MEDS ORDERED: LACTULOSE 20G/30ML UDC PO NR (15:00)
[2021-07-22] MEDS ORDERED: BISACODYL 10MG SUPP PR NR (15:00)
[2021-07-22 20:00] VITALS: BP 110/63
[2021-07-23] VITALS: BP 114/77
[2021-07-23 04:00] VITALS: BP 109/62
[2021-07-23 07:17] LABS: CHLORIDE 105 mEq/L (98-107)
[2021-07-23 07:20] LABS: BASOPHILS % 0.3 % (0.0-2.0); HEMATOCRIT. 37.9 % (42.0-52.0); HEMOGLOBIN. 13.1 g/dL (14.0-18.0); LYMPHOCYTES % 26.6 % (20.0-50.0); MEAN CORPUSCULAR HEMOGLOBIN 29.3 pg (28.0-32.0); MEAN CORPUSCULAR VOLUME 84.7 fL (80.0-94.0); MEAN PLATELET VOLUME 8.4 fl (7.4-10.4); MONOCYTES % 8.3 % (2.0-8.0); NEUTROPHILS % 62.8 % (40.0-76.0); PLATELET 217 x1000/uL (130-400); RED BLOOD CELL COUNT 4.47 mill/uL (4.7-6.1); RED CELL DISTRIBUTION WIDTH 13.9 % (11.6-14.6)
[2021-07-23 08:00] VITALS: BP 107/59
[2021-07-23] MEDS: DOCUSATE SODIUM 250MG CAPSULE PO SCH (08:57)
[2021-07-23] MEDS: LEVETIRACETAM 500MG TABLET PO SCH ×2 (08:57→21:58)
[2021-07-23] MEDS: CITALOPRAM HYDROBROMIDE 10MG TABLET PO SCH (08:57)
[2021-07-23] MEDS: ENOXAPARIN 40MG/0.4ML SYR SUBCUT SCH (08:58)
[2021-07-23 12:00] VITALS: BP 102/60
[2021-07-23 16:00] VITALS: BP 100/64
[2021-07-23 20:00] VITALS: BP 107/63
[2021-07-24] VITALS (7 sets, daily range): BP systolic 100–110; BP diastolic 54–71
[2021-07-24] MEDS: CITALOPRAM HYDROBROMIDE 10MG TABLET PO SCH (09:19)
[2021-07-24] MEDS: DOCUSATE SODIUM 250MG CAPSULE PO SCH (09:19)
[2021-07-24] MEDS: LEVETIRACETAM 500MG TABLET PO SCH ×2 (09:20→21:54)
[2021-07-24] MEDS: ENOXAPARIN 40MG/0.4ML SYR SUBCUT SCH (09:20)
[2021-07-25] VITALS: BP 96/58
[2021-07-25 04:00] VITALS: BP 97/61
[2021-07-25 08:00] VITALS: BP 99/61
[2021-07-25] MEDS: DOCUSATE SODIUM 250MG CAPSULE PO SCH (10:46)
[2021-07-25] MEDS: CITALOPRAM HYDROBROMIDE 10MG TABLET PO SCH (10:47)
[2021-07-25] MEDS: ENOXAPARIN 40MG/0.4ML SYR SUBCUT SCH (10:47)
[2021-07-25] MEDS: LEVETIRACETAM 500MG TABLET PO SCH ×2 (10:47→22:23)
[2021-07-25 12:00] VITALS: BP 100/60
[2021-07-25 16:00] VITALS: BP 95/50
[2021-07-25 20:00] VITALS: BP 107/63
[2021-07-26] VITALS: BP 105/63
[2021-07-26 04:00] VITALS: BP 100/54
[2021-07-26 08:00] VITALS: BP 104/63
[2021-07-26] MEDS: DOCUSATE SODIUM 250MG CAPSULE PO SCH (08:43)
[2021-07-26] MEDS: CITALOPRAM HYDROBROMIDE 10MG TABLET PO SCH (08:43)
[2021-07-26] MEDS: LEVETIRACETAM 500MG TABLET PO SCH ×2 (08:43→21:41)
[2021-07-26] MEDS: ENOXAPARIN 40MG/0.4ML SYR SUBCUT SCH (08:45)
[2021-07-26 12:00] VITALS: BP 96/54
[2021-07-26 16:00] VITALS: BP 102/58
[2021-07-26 20:00] VITALS: BP 102/60
[2021-07-27] VITALS: BP 107/67
[2021-07-27 04:00] VITALS: BP 105/69
[2021-07-27 08:00] VITALS: BP 108/73
[2021-07-27] MEDS: DOCUSATE SODIUM 250MG CAPSULE PO SCH (08:48)
[2021-07-27] MEDS: ENOXAPARIN 40MG/0.4ML SYR SUBCUT SCH (08:48)
[2021-07-27] MEDS: CITALOPRAM HYDROBROMIDE 10MG TABLET PO SCH (08:48)
[2021-07-27] MEDS: LEVETIRACETAM 500MG TABLET PO SCH ×2 (08:48→21:02)
[2021-07-27 12:00] VITALS: BP 109/56
[2021-07-27 16:00] VITALS: BP 100/62
[2021-07-27 20:00] VITALS: BP 109/69
[2021-07-28] VITALS: BP 103/62
[2021-07-28 04:00] VITALS: BP 98/62
[2021-07-28 08:00] VITALS: BP 96/59
[2021-07-28] MEDS: DOCUSATE SODIUM 250MG CAPSULE PO SCH (09:17)
[2021-07-28] MEDS: CITALOPRAM HYDROBROMIDE 10MG TABLET PO SCH (09:17)
[2021-07-28] MEDS: ENOXAPARIN 40MG/0.4ML SYR SUBCUT SCH (09:18)
[2021-07-28] MEDS: LEVETIRACETAM 500MG TABLET PO SCH ×2 (09:18→21:33)
[2021-07-28 11:59] VITALS: BP 97/57
[2021-07-28 16:00] VITALS: BP 99/56
[2021-07-28 20:00] VITALS: BP 105/58
[2021-07-29] VITALS: BP 97/57
[2021-07-29 04:00] VITALS: BP 96/59
[2021-07-29 08:00] VITALS: BP 99/56
[2021-07-29] MEDS: LEVETIRACETAM 500MG TABLET PO SCH ×2 (08:41→20:56)
[2021-07-29] MEDS: DOCUSATE SODIUM 250MG CAPSULE PO SCH (08:41)
[2021-07-29] MEDS: CITALOPRAM HYDROBROMIDE 10MG TABLET PO SCH (08:41)
[2021-07-29] MEDS: ENOXAPARIN 40MG/0.4ML SYR SUBCUT SCH (08:42)
[2021-07-29 12:00] VITALS: BP 94/55
[2021-07-29 16:00] VITALS: BP 96/56
[2021-07-29 20:00] VITALS: BP 100/58
[2021-07-30] VITALS: BP 97/60
[2021-07-30 04:00] VITALS: BP 97/54
[2021-07-30 07:13] LABS: BASOPHILS % 0.3 % (0.0-2.0); EOSINOPHILS % 1.9 % (0.0-5.0); HEMATOCRIT. 38.9 % (42.0-52.0); HEMOGLOBIN. 13.2 g/dL (14.0-18.0); MEAN CORPUSCULAR VOLUME 85.7 fL (80.0-94.0); MEAN PLATELET VOLUME 8.4 fl (7.4-10.4); MONOCYTES % 7.4 % (2.0-8.0); NEUTROPHILS % 65.4 % (40.0-76.0); PLATELET 180 x1000/uL (130-400); RED BLOOD CELL COUNT 4.55 mill/uL (4.7-6.1); RED CELL DISTRIBUTION WIDTH 14.2 % (11.6-14.6)
[2021-07-30 07:16] LABS: CHLORIDE 106 mEq/L (98-107)
[2021-07-30 08:00] VITALS: BP 102/55
[2021-07-30] MEDS: DOCUSATE SODIUM 250MG CAPSULE PO SCH (08:16)
[2021-07-30] MEDS: LEVETIRACETAM 500MG TABLET PO SCH ×2 (08:16→21:40)
[2021-07-30] MEDS: CITALOPRAM HYDROBROMIDE 10MG TABLET PO SCH (08:16)
[2021-07-30 12:00] VITALS: BP 100/51
[2021-07-30 16:00] VITALS: BP 99/63
[2021-07-30] MEDS: ENOXAPARIN 40MG/0.4ML SYR SUBCUT SCH (16:26)
[2021-07-30 20:00] VITALS: BP 106/69
[2021-07-31] VITALS: BP 97/54
[2021-07-31 04:00] VITALS: BP 98/56
[2021-07-31 08:00] VITALS: BP 100/62
[2021-07-31] MEDS: CITALOPRAM HYDROBROMIDE 10MG TABLET PO SCH (09:19)
[2021-07-31] MEDS: DOCUSATE SODIUM 250MG CAPSULE PO SCH (09:19)
[2021-07-31] MEDS: LEVETIRACETAM 500MG TABLET PO SCH ×2 (09:19→20:29)
[2021-07-31 12:00] VITALS: BP 100/69
[2021-07-31 16:00] VITALS: BP 115/67
[2021-07-31] MEDS: ENOXAPARIN 40MG/0.4ML SYR SUBCUT SCH (16:35)
[2021-07-31 20:00] VITALS: BP 99/60
[2021-08-01] VITALS: BP 106/66
[2021-08-01 04:00] VITALS: BP 98/56
[2021-08-01 08:00] VITALS: BP 94/62
[2021-08-01] MEDS: DOCUSATE SODIUM 250MG CAPSULE PO SCH (08:59)
[2021-08-01] MEDS: LEVETIRACETAM 500MG TABLET PO SCH ×2 (08:59→20:44)
[2021-08-01] MEDS: CITALOPRAM HYDROBROMIDE 10MG TABLET PO SCH (08:59)
[2021-08-01 12:00] VITALS: BP 104/72
[2021-08-01 16:00] VITALS: BP 96/55
[2021-08-01] MEDS: ENOXAPARIN 40MG/0.4ML SYR SUBCUT SCH (17:01)
[2021-08-01 20:00] VITALS: BP 97/54
[2021-08-02] VITALS: BP_SYST 96
[2021-08-02 04:00] VITALS: BP 100/58
[2021-08-02 08:00] VITALS: BP 96/60
[2021-08-02] MEDS: LEVETIRACETAM 500MG TABLET PO SCH ×2 (08:38→20:53)
[2021-08-02] MEDS: CITALOPRAM HYDROBROMIDE 10MG TABLET PO SCH (08:38)
[2021-08-02] MEDS: DOCUSATE SODIUM 250MG CAPSULE PO SCH (08:38)
[2021-08-02 12:00] VITALS: BP 96/56
[2021-08-02] MEDS: ENOXAPARIN 40MG/0.4ML SYR SUBCUT SCH (17:01)
[2021-08-02 20:00] VITALS: BP 102/60
[2021-08-03] VITALS: BP 95/58
[2021-08-03 04:00] VITALS: BP 99/59
[2021-08-03 08:00] VITALS: BP 96/61
[2021-08-03] MEDS: LEVETIRACETAM 500MG TABLET PO SCH ×2 (09:00→20:06)
[2021-08-03] MEDS: CITALOPRAM HYDROBROMIDE 10MG TABLET PO SCH (09:00)
[2021-08-03] MEDS: DOCUSATE SODIUM 250MG CAPSULE PO SCH (09:00)
[2021-08-03 12:20] VITALS: BP 95/51
[2021-08-03 16:00] VITALS: BP 100/57
[2021-08-03] MEDS: ENOXAPARIN 40MG/0.4ML SYR SUBCUT SCH (16:59)
[2021-08-03 20:00] VITALS: BP 99/55
[2021-08-04] VITALS: BP 90/55
[2021-08-04 04:00] VITALS: BP 98/59
[2021-08-04 06:24] LABS: BASOPHILS % 0.2 % (0.0-2.0); EOSINOPHILS % 2.6 % (0.0-5.0); HEMATOCRIT. 38.2 % (42.0-52.0); HEMOGLOBIN. 12.7 g/dL (14.0-18.0); MEAN CORPUSCULAR HEMOGLOBIN 28.5 pg (28.0-32.0); MEAN CORPUSCULAR VOLUME 85.5 fL (80.0-94.0); MONOCYTES % 8.8 % (2.0-8.0); NEUTROPHILS % 60.4 % (40.0-76.0); PLATELET 163 x1000/uL (130-400); RED BLOOD CELL COUNT 4.47 mill/uL (4.7-6.1); RED CELL DISTRIBUTION WIDTH 14.7 % (11.6-14.6)
[2021-08-04 06:54] LABS: CHLORIDE 105 mEq/L (98-107)
[2021-08-04 08:00] VITALS: BP 118/79
[2021-08-04] MEDS: CITALOPRAM HYDROBROMIDE 10MG TABLET PO SCH (08:47)
[2021-08-04] MEDS: LEVETIRACETAM 500MG TABLET PO SCH ×2 (08:47→20:03)
[2021-08-04 12:00] VITALS: BP 91/55
[2021-08-04] MEDS: ENOXAPARIN 40MG/0.4ML SYR SUBCUT SCH (15:32)
[2021-08-04 16:00] VITALS: BP 92/54
[2021-08-04 20:00] VITALS: BP 98/55
[2021-08-05] VITALS: BP 91/55
[2021-08-05 04:00] VITALS: BP 93/55
[2021-08-05 07:54] VITALS: BP 94/52
[2021-08-05] MEDS: LEVETIRACETAM 500MG TABLET PO SCH ×2 (08:27→20:52)
[2021-08-05] MEDS: CITALOPRAM HYDROBROMIDE 10MG TABLET PO SCH (08:27)
[2021-08-05] MEDS: DOCUSATE SODIUM 250MG CAPSULE PO SCH (08:27)
[2021-08-05 12:00] VITALS: BP 90/52
[2021-08-05 16:00] VITALS: BP 103/61
[2021-08-05] MEDS: ENOXAPARIN 40MG/0.4ML SYR SUBCUT SCH (16:28)
[2021-08-05 20:00] VITALS: BP 93/56
[2021-08-05] MEDS: BUSPIRONE HCL 5MG TABLET PO SCH (20:52)
[2021-08-06] VITALS: BP 92/51
[2021-08-06 04:00] VITALS: BP 93/59
[2021-08-06 08:00] VITALS: BP 93/50
[2021-08-06] MEDS: DOCUSATE SODIUM 250MG CAPSULE PO SCH (09:15)
[2021-08-06] MEDS: LEVETIRACETAM 500MG TABLET PO SCH ×2 (09:15→22:01)
[2021-08-06] MEDS: CITALOPRAM HYDROBROMIDE 10MG TABLET PO SCH (09:15)
[2021-08-06] MEDS: BUSPIRONE HCL 5MG TABLET PO SCH ×2 (09:15→22:01)
[2021-08-06 12:00] VITALS: BP 96/53
[2021-08-06 16:00] VITALS: BP 99/57
[2021-08-06] MEDS: ENOXAPARIN 40MG/0.4ML SYR SUBCUT SCH (17:23)
[2021-08-06 20:00] VITALS: BP 99/56
[2021-08-07] VITALS: BP 98/70
[2021-08-07 04:00] VITALS: BP 95/56
[2021-08-07 08:00] VITALS: BP 99/56
[2021-08-07] MEDS: DOCUSATE SODIUM 250MG CAPSULE PO SCH (09:02)
[2021-08-07] MEDS: CITALOPRAM HYDROBROMIDE 10MG TABLET PO SCH (09:02)
[2021-08-07] MEDS: LEVETIRACETAM 500MG TABLET PO SCH ×2 (09:02→22:24)
[2021-08-07] MEDS: BUSPIRONE HCL 5MG TABLET PO SCH ×2 (09:02→22:24)
[2021-08-07 12:00] VITALS: BP 95/54
[2021-08-07 16:00] VITALS: BP 95/64
[2021-08-07] MEDS: ENOXAPARIN 40MG/0.4ML SYR SUBCUT SCH (16:52)
[2021-08-07 20:00] VITALS: BP 97/64
[2021-08-08] VITALS: BP 101/64
[2021-08-08 04:00] VITALS: BP 105/68
[2021-08-08 08:00] VITALS: BP 94/62
[2021-08-08] MEDS: CITALOPRAM HYDROBROMIDE 10MG TABLET PO SCH (09:12)
[2021-08-08] MEDS: LEVETIRACETAM 500MG TABLET PO SCH ×2 (09:12→21:43)
[2021-08-08] MEDS: BUSPIRONE HCL 5MG TABLET PO SCH ×2 (09:12→21:43)
[2021-08-08] MEDS: DOCUSATE SODIUM 250MG CAPSULE PO SCH (09:12)
[2021-08-08 12:00] VITALS: BP 88/48
[2021-08-08 16:00] VITALS: BP 94/56
[2021-08-08] MEDS: ENOXAPARIN 40MG/0.4ML SYR SUBCUT SCH (16:52)
[2021-08-08 20:00] VITALS: BP 94/56
[2021-08-09] VITALS: BP 98/56
[2021-08-09 04:00] VITALS: BP 97/55
[2021-08-09 08:00] VITALS: BP 101/62
[2021-08-09] MEDS: DOCUSATE SODIUM 250MG CAPSULE PO SCH (09:24)
[2021-08-09] MEDS: BUSPIRONE HCL 5MG TABLET PO SCH ×2 (09:24→21:54)
[2021-08-09] MEDS: LEVETIRACETAM 500MG TABLET PO SCH ×2 (09:24→21:54)
[2021-08-09] MEDS: CITALOPRAM HYDROBROMIDE 10MG TABLET PO SCH (09:24)
[2021-08-09 12:00] VITALS: BP 112/68
[2021-08-09 16:00] VITALS: BP 121/74
[2021-08-09] MEDS: ENOXAPARIN 40MG/0.4ML SYR SUBCUT SCH (16:38)
[2021-08-09 20:00] VITALS: BP 99/57
[2021-08-10 04:00] VITALS: BP 98/55
[2021-08-10 05:44] LABS: BASOPHILS % 0.3 % (0.0-2.0); EOSINOPHILS % 2.2 % (0.0-5.0); HEMATOCRIT. 37.7 % (42.0-52.0); HEMOGLOBIN. 12.8 g/dL (14.0-18.0); LYMPHOCYTES % 30.4 % (20.0-50.0); MEAN CORPUSCULAR HEMOGLOBIN 28.8 pg (28.0-32.0); MEAN CORPUSCULAR VOLUME 84.7 fL (80.0-94.0); MEAN PLATELET VOLUME 9.1 fl (7.4-10.4); MONOCYTES % 9.3 % (2.0-8.0); NEUTROPHILS % 57.8 % (40.0-76.0); PLATELET 146 x1000/uL (130-400); RED BLOOD CELL COUNT 4.45 mill/uL (4.7-6.1); RED CELL DISTRIBUTION WIDTH 14.7 % (11.6-14.6)
[2021-08-10 08:00] VITALS: BP 102/62
[2021-08-10 08:19] LABS: CHLORIDE 107 mEq/L (98-107)
[2021-08-10] MEDS: CITALOPRAM HYDROBROMIDE 10MG TABLET PO SCH (09:07)
[2021-08-10] MEDS: DOCUSATE SODIUM 250MG CAPSULE PO SCH (09:07)
[2021-08-10] MEDS: LEVETIRACETAM 500MG TABLET PO SCH ×2 (09:07→21:23)
[2021-08-10] MEDS: BUSPIRONE HCL 5MG TABLET PO SCH (09:08)
[2021-08-10 12:00] VITALS: BP 98/54
[2021-08-10 16:00] VITALS: BP 93/55
[2021-08-10] MEDS: ENOXAPARIN 40MG/0.4ML SYR SUBCUT SCH (16:29)
[2021-08-10 20:00] VITALS: BP 101/58
[2021-08-11] VITALS: BP 97/59
[2021-08-11 04:00] VITALS: BP 93/53
[2021-08-11 08:00] VITALS: BP 92/52
[2021-08-11] MEDS: DOCUSATE SODIUM 250MG CAPSULE PO SCH (08:24)
[2021-08-11] MEDS: LEVETIRACETAM 500MG TABLET PO SCH ×2 (08:24→21:52)
[2021-08-11] MEDS: CITALOPRAM HYDROBROMIDE 10MG TABLET PO SCH (08:24)
[2021-08-11 12:00] VITALS: BP 98/58
[2021-08-11] MEDS ORDERED: ZINC SULFATE 220 MG ( 50 ) CAPSULE PO SCH (13:45)
[2021-08-11] MEDS ORDERED: ASCORBIC ACID 500 MG TABLET PO SCH (13:45)
[2021-08-11] MEDS: ENOXAPARIN 40MG/0.4ML SYR SUBCUT SCH (15:29)
[2021-08-11 16:00] VITALS: BP 100/58
[2021-08-11 20:00] VITALS: BP 97/57
[2021-08-12] VITALS: BP 95/61
[2021-08-12 04:00] VITALS: BP 91/53
[2021-08-12 08:00] VITALS: BP 94/54
[2021-08-12] MEDS: DOCUSATE SODIUM 250MG CAPSULE PO SCH (09:02)
[2021-08-12] MEDS: ZINC SULFATE 220 MG ( 50 ) CAPSULE PO SCH (09:02)
[2021-08-12] MEDS: ASCORBIC ACID 500 MG TABLET PO SCH (09:02)
[2021-08-12] MEDS: CITALOPRAM HYDROBROMIDE 10MG TABLET PO SCH (09:03)
[2021-08-12 12:00] VITALS: BP 95/60
[2021-08-12 16:00] VITALS: BP 97/61
[2021-08-12] MEDS: ENOXAPARIN 40MG/0.4ML SYR SUBCUT SCH (16:04)
[2021-08-12 20:00] VITALS: BP 98/58
[2021-08-13] VITALS: BP 98/60
[2021-08-13 04:00] VITALS: BP 98/62
[2021-08-13 08:00] VITALS: BP 103/66
[2021-08-13] MEDS: CITALOPRAM HYDROBROMIDE 10MG TABLET PO SCH (09:06)
[2021-08-13] MEDS: ASCORBIC ACID 500 MG TABLET PO SCH (09:06)
[2021-08-13] MEDS: ZINC SULFATE 220 MG ( 50 ) CAPSULE PO SCH (09:06)
[2021-08-13] MEDS: DOCUSATE SODIUM 250MG CAPSULE PO SCH (09:06)
[2021-08-13 12:00] VITALS: BP 98/52
[2021-08-13 16:00] VITALS: BP 111/62
[2021-08-13] MEDS: ENOXAPARIN 40MG/0.4ML SYR SUBCUT SCH (17:04)
[2021-08-13 20:00] VITALS: BP 100/60
[2021-08-14] VITALS: BP 101/60
[2021-08-14 04:00] VITALS: BP 110/72
[2021-08-14 08:00] VITALS: BP 100/60
[2021-08-14] MEDS: ZINC SULFATE 220 MG ( 50 ) CAPSULE PO SCH (09:04)
[2021-08-14] MEDS: CITALOPRAM HYDROBROMIDE 10MG TABLET PO SCH (09:04)
[2021-08-14] MEDS: ASCORBIC ACID 500 MG TABLET PO SCH (09:04)
[2021-08-14] MEDS: DOCUSATE SODIUM 250MG CAPSULE PO SCH (09:04)
[2021-08-14 12:00] VITALS: BP 117/73
[2021-08-14] MEDS: ENOXAPARIN 40MG/0.4ML SYR SUBCUT SCH (15:59)
[2021-08-14 16:00] VITALS: BP 103/66
[2021-08-15 08:00] VITALS: BP 101/62
[2021-08-15] MEDS: CITALOPRAM HYDROBROMIDE 10MG TABLET PO SCH (09:30)
[2021-08-15] MEDS: ZINC SULFATE 220 MG ( 50 ) CAPSULE PO SCH (09:31)
[2021-08-15] MEDS: DOCUSATE SODIUM 250MG CAPSULE PO SCH (09:31)
[2021-08-15] MEDS: ASCORBIC ACID 500 MG TABLET PO SCH (09:31)
[2021-08-15 12:00] VITALS: BP 101/63
[2021-08-15] MEDS: ENOXAPARIN 40MG/0.4ML SYR SUBCUT SCH (15:57)
[2021-08-15 16:00] VITALS: BP 101/64
[2021-08-15 20:00] VITALS: BP 94/55
[2021-08-16] VITALS: BP 93/56
[2021-08-16 04:00] VITALS: BP 92/52
[2021-08-16 08:00] VITALS: BP 92/51
[2021-08-16] MEDS: ASCORBIC ACID 500 MG TABLET PO SCH (09:20)
[2021-08-16] MEDS: DOCUSATE SODIUM 250MG CAPSULE PO SCH (09:27)
[2021-08-16] MEDS: ZINC SULFATE 220 MG ( 50 ) CAPSULE PO SCH (09:27)
[2021-08-16] MEDS: CITALOPRAM HYDROBROMIDE 10MG TABLET PO SCH (09:27)
[2021-08-16 12:00] VITALS: BP 97/54
[2021-08-16 16:00] VITALS: BP 106/67
[2021-08-16] MEDS: ENOXAPARIN 40MG/0.4ML SYR SUBCUT SCH (17:02)
[2021-08-16 20:00] VITALS: BP 94/55
[2021-08-17] VITALS: BP 94/60
[2021-08-17 04:00] VITALS: BP 90/54
[2021-08-17 05:43] LABS: HEMATOCRIT 37.2 % (42.0-52.0); HEMOGLOBIN 12.6 g/dL (14.0-18.0); MEAN CORPUSCULAR HEMOGLOBIN 28.6 pg (28.0-32.0); MEAN CORPUSCULAR VOLUME 84.5 fL (80.0-94.0); PLATELET 161 x1000/uL (130-400); RED CELL DISTRIBUTION WIDTH 15.2 % (11.6-14.6)
[2021-08-17 05:50] LABS: CHLORIDE 105 mEq/L (98-107)
[2021-08-17 08:00] VITALS: BP 95/52
[2021-08-17] MEDS: ASCORBIC ACID 500 MG TABLET PO SCH (09:21)
[2021-08-17] MEDS: ZINC SULFATE 220 MG ( 50 ) CAPSULE PO SCH (09:21)
[2021-08-17] MEDS: DOCUSATE SODIUM 250MG CAPSULE PO SCH (09:21)
[2021-08-17] MEDS: CITALOPRAM HYDROBROMIDE 10MG TABLET PO SCH (09:21)
[2021-08-17 12:00] VITALS: BP 96/56
[2021-08-17] MEDS: ENOXAPARIN 40MG/0.4ML SYR SUBCUT SCH (15:24)
[2021-08-17 16:00] VITALS: BP 94/59
[2021-08-17 20:00] VITALS: BP 97/53
[2021-08-18] VITALS: BP 96/63
[2021-08-18 04:00] VITALS: BP 96/54
[2021-08-18 08:00] VITALS: BP 102/63
[2021-08-18] MEDS: ASCORBIC ACID 500 MG TABLET PO SCH (08:40)
[2021-08-18] MEDS: ZINC SULFATE 220 MG ( 50 ) CAPSULE PO SCH (08:41)
[2021-08-18] MEDS: CITALOPRAM HYDROBROMIDE 10MG TABLET PO SCH (08:41)
[2021-08-18] MEDS: DOCUSATE SODIUM 250MG CAPSULE PO SCH (08:41)
[2021-08-18 12:00] VITALS: BP 92/50
[2021-08-18 16:00] VITALS: BP 95/53
[2021-08-18] MEDS: ENOXAPARIN 40MG/0.4ML SYR SUBCUT SCH (16:54)
[2021-08-18 20:00] VITALS: BP 100/57
[2021-08-19] VITALS: BP 91/51
[2021-08-19 04:00] VITALS: BP 90/53
[2021-08-19 08:00] VITALS: BP 113/70
[2021-08-19] MEDS: ZINC SULFATE 220 MG ( 50 ) CAPSULE PO SCH (09:17)
[2021-08-19] MEDS: CITALOPRAM HYDROBROMIDE 10MG TABLET PO SCH (09:18)
[2021-08-19] MEDS: DOCUSATE SODIUM 250MG CAPSULE PO SCH (09:18)
[2021-08-19] MEDS: ASCORBIC ACID 500 MG TABLET PO SCH (09:18)
[2021-08-19 12:00] VITALS: BP 112/68
[2021-08-19 16:00] VITALS: BP 119/57
[2021-08-19] MEDS: ENOXAPARIN 40MG/0.4ML SYR SUBCUT SCH (16:50)
[2021-08-19 20:00] VITALS: BP 91/52
[2021-08-19] MEDS: LEVETIRACETAM 500MG TABLET PO SCH (20:05)
[2021-08-20] VITALS: BP 90/54
[2021-08-20 04:00] VITALS: BP 90/50
[2021-08-20 08:00] VITALS: BP 87/48
[2021-08-20] MEDS: ASCORBIC ACID 500 MG TABLET PO SCH (08:54)
[2021-08-20] MEDS: DOCUSATE SODIUM 250MG CAPSULE PO SCH (08:54)
[2021-08-20] MEDS: LEVETIRACETAM 500MG TABLET PO SCH ×2 (08:54→21:39)
[2021-08-20] MEDS: ZINC SULFATE 220 MG ( 50 ) CAPSULE PO SCH (08:54)
[2021-08-20 12:00] VITALS: BP 94/55
[2021-08-20 16:00] VITALS: BP 88/49
[2021-08-20] MEDS: ENOXAPARIN 40MG/0.4ML SYR SUBCUT SCH (16:34)
[2021-08-20 20:00] VITALS: BP 93/53
[2021-08-21] VITALS: BP 100/53
[2021-08-21 04:00] VITALS: BP 100/60
[2021-08-21 08:00] VITALS: BP 94/57
[2021-08-21] MEDS: LEVETIRACETAM 500MG TABLET PO SCH ×2 (08:40→21:50)
[2021-08-21] MEDS: ASCORBIC ACID 500 MG TABLET PO SCH (08:40)
[2021-08-21] MEDS: ZINC SULFATE 220 MG ( 50 ) CAPSULE PO SCH (08:40)
[2021-08-21] MEDS: DOCUSATE SODIUM 250MG CAPSULE PO SCH (08:40)
[2021-08-21 12:00] VITALS: BP 94/56
[2021-08-21] MEDS: ENOXAPARIN 40MG/0.4ML SYR SUBCUT SCH (15:59)
[2021-08-21 16:00] VITALS: BP 88/49
[2021-08-21 20:00] VITALS: BP 94/54
[2021-08-22] VITALS: BP 95/54
[2021-08-22 04:00] VITALS: BP 94/57
[2021-08-22 08:00] VITALS: BP 90/52
[2021-08-22] MEDS: DOCUSATE SODIUM 250MG CAPSULE PO SCH (10:43)
[2021-08-22] MEDS: LEVETIRACETAM 500MG TABLET PO SCH ×2 (10:43→21:47)
[2021-08-22] MEDS: ASCORBIC ACID 500 MG TABLET PO SCH (10:43)
[2021-08-22] MEDS: ZINC SULFATE 220 MG ( 50 ) CAPSULE PO SCH (10:43)
[2021-08-22 12:00] VITALS: BP 93/50
[2021-08-22 16:00] VITALS: BP 97/50
[2021-08-22] MEDS: ENOXAPARIN 40MG/0.4ML SYR SUBCUT SCH (18:00)
[2021-08-22 20:00] VITALS: BP 93/48
[2021-08-23] VITALS: BP 96/56
[2021-08-23 04:00] VITALS: BP 93/53
[2021-08-23 08:00] VITALS: BP 91/55
[2021-08-23] MEDS: ASCORBIC ACID 500 MG TABLET PO SCH (09:50)
[2021-08-23] MEDS: DOCUSATE SODIUM 250MG CAPSULE PO SCH (09:50)
[2021-08-23] MEDS: ZINC SULFATE 220 MG ( 50 ) CAPSULE PO SCH (09:50)
[2021-08-23] MEDS: LEVETIRACETAM 500MG TABLET PO SCH ×2 (09:50→20:49)
[2021-08-23 12:00] VITALS: BP 94/53
[2021-08-23 16:00] VITALS: BP 93/54
[2021-08-23] MEDS: ENOXAPARIN 40MG/0.4ML SYR SUBCUT SCH (16:57)
[2021-08-23 20:00] VITALS: BP 92/50
[2021-08-24] VITALS: BP 152/75
[2021-08-24 04:00] VITALS: BP 99/51
[2021-08-24 08:00] VITALS: BP 100/52
[2021-08-24] MEDS: LEVETIRACETAM 500MG TABLET PO SCH ×2 (08:43→20:32)
[2021-08-24] MEDS: ZINC SULFATE 220 MG ( 50 ) CAPSULE PO SCH (08:43)
[2021-08-24] MEDS: DOCUSATE SODIUM 250MG CAPSULE PO SCH (08:43)
[2021-08-24] MEDS: ASCORBIC ACID 500 MG TABLET PO SCH (08:43)
[2021-08-24 12:00] VITALS: BP 112/62
[2021-08-24 16:00] VITALS: BP 103/67
[2021-08-24] MEDS: ENOXAPARIN 40MG/0.4ML SYR SUBCUT SCH (16:19)
[2021-08-24 20:00] VITALS: BP 93/56
[2021-08-25] VITALS: BP 97/61
[2021-08-25 04:00] VITALS: BP 93/52
[2021-08-25 08:00] VITALS: BP 92/54
[2021-08-25] MEDS: ZINC SULFATE 220 MG ( 50 ) CAPSULE PO SCH (08:44)
[2021-08-25] MEDS: DOCUSATE SODIUM 250MG CAPSULE PO SCH (08:44)
[2021-08-25] MEDS: LEVETIRACETAM 500MG TABLET PO SCH ×2 (08:44→20:29)
[2021-08-25] MEDS: ASCORBIC ACID 500 MG TABLET PO SCH (08:45)
[2021-08-25 12:00] VITALS: BP 94/55
[2021-08-25 16:00] VITALS: BP 91/51
[2021-08-25] MEDS: ENOXAPARIN 40MG/0.4ML SYR SUBCUT SCH (16:14)
[2021-08-25 20:00] VITALS: BP 102/55
[2021-08-26] VITALS: BP 93/57
[2021-08-26 04:00] VITALS: BP 95/59
[2021-08-26 08:00] VITALS: BP 137/84
[2021-08-26] MEDS: ASCORBIC ACID 500 MG TABLET PO SCH (09:18)
[2021-08-26] MEDS: LEVETIRACETAM 500MG TABLET PO SCH ×2 (09:19→20:28)
[2021-08-26] MEDS: DOCUSATE SODIUM 250MG CAPSULE PO SCH (09:19)
[2021-08-26] MEDS: ZINC SULFATE 220 MG ( 50 ) CAPSULE PO SCH (09:19)
[2021-08-26 12:00] VITALS: BP 98/57
[2021-08-26 16:00] VITALS: BP 92/51
[2021-08-26] MEDS: ENOXAPARIN 40MG/0.4ML SYR SUBCUT SCH (17:28)
[2021-08-26 20:00] VITALS: BP 91/49
[2021-08-27] VITALS: BP 93/51
[2021-08-27 04:00] VITALS: BP_SYST 120; BP_SYST 90; BP_DIAS 49; BP_DIAS 64
[2021-08-27 08:00] VITALS: BP 94/52
[2021-08-27] MEDS: DOCUSATE SODIUM 250MG CAPSULE PO SCH (08:42)
[2021-08-27] MEDS: ASCORBIC ACID 500 MG TABLET PO SCH (08:42)
[2021-08-27] MEDS: LEVETIRACETAM 500MG TABLET PO SCH ×2 (08:42→20:27)
[2021-08-27] MEDS: ZINC SULFATE 220 MG ( 50 ) CAPSULE PO SCH (08:42)
[2021-08-27 08:51] LABS: HEMOGLOBIN 13.2 g/dL (14.0-18.0); MEAN CORPUSCULAR HEMOGLOBIN 28.5 pg (28.0-32.0); MEAN CORPUSCULAR VOLUME 84.3 fL (80.0-94.0); PLATELET 166 x1000/uL (130-400); RED BLOOD CELL COUNT 4.63 mill/uL (4.7-6.1); RED CELL DISTRIBUTION WIDTH 15.3 % (11.6-14.6)
[2021-08-27 08:59] LABS: CHLORIDE 105 mEq/L (98-107)
[2021-08-27 12:00] VITALS: BP 110/78
[2021-08-27 16:00] VITALS: BP 98/59
[2021-08-27] MEDS: ENOXAPARIN 40MG/0.4ML SYR SUBCUT SCH (17:00)
[2021-08-27 20:00] VITALS: BP 94/94
[2021-08-28] VITALS: BP 94/55
[2021-08-28 04:00] VITALS: BP 94/55
[2021-08-28 08:00] VITALS: BP 94/59
[2021-08-28] MEDS: DOCUSATE SODIUM 250MG CAPSULE PO SCH (08:56)
[2021-08-28] MEDS: ASCORBIC ACID 500 MG TABLET PO SCH (08:56)
[2021-08-28] MEDS: LEVETIRACETAM 500MG TABLET PO SCH ×2 (08:56→21:29)
[2021-08-28] MEDS: ZINC SULFATE 220 MG ( 50 ) CAPSULE PO SCH (08:56)
[2021-08-28 12:00] VITALS: BP 102/60
[2021-08-28 16:00] VITALS: BP 98/51
[2021-08-28] MEDS: ENOXAPARIN 40MG/0.4ML SYR SUBCUT SCH (16:42)
[2021-08-28 20:00] VITALS: BP 89/51
[2021-08-29] VITALS: BP 95/60
[2021-08-29 04:00] VITALS: BP 96/61
[2021-08-29 08:00] VITALS: BP 98/54
[2021-08-29] MEDS: ZINC SULFATE 220 MG ( 50 ) CAPSULE PO SCH (08:37)
[2021-08-29] MEDS: ASCORBIC ACID 500 MG TABLET PO SCH (08:37)
[2021-08-29] MEDS: DOCUSATE SODIUM 250MG CAPSULE PO SCH (08:37)
[2021-08-29] MEDS: LEVETIRACETAM 500MG TABLET PO SCH ×2 (08:37→20:08)
[2021-08-29 12:02] VITALS: BP 108/56
[2021-08-29 16:00] VITALS: BP 90/50
[2021-08-29] MEDS: ENOXAPARIN 40MG/0.4ML SYR SUBCUT SCH (17:46)
[2021-08-29 20:00] VITALS: BP 91/54
[2021-08-30] VITALS (9 sets, daily range): BP systolic 90–109; BP diastolic 50–64
[2021-08-30] MEDS: ASCORBIC ACID 500 MG TABLET PO SCH (08:58)
[2021-08-30] MEDS: ZINC SULFATE 220 MG ( 50 ) CAPSULE PO SCH (08:58)
[2021-08-30] MEDS: DOCUSATE SODIUM 250MG CAPSULE PO SCH (08:58)
[2021-08-30] MEDS: LEVETIRACETAM 500MG TABLET PO SCH ×2 (08:58→21:00)
[2021-08-30] MEDS: ENOXAPARIN 40MG/0.4ML SYR SUBCUT SCH (16:23)
[2021-08-31] VITALS: BP 98/52
[2021-08-31 04:00] VITALS: BP 96/50
[2021-08-31 08:00] VITALS: BP 95/59
[2021-08-31] MEDS: DOCUSATE SODIUM 250MG CAPSULE PO SCH (11:10)
[2021-08-31] MEDS: LEVETIRACETAM 500MG TABLET PO SCH ×2 (11:11→22:16)
[2021-08-31] MEDS: ZINC SULFATE 220 MG ( 50 ) CAPSULE PO SCH (11:11)
[2021-08-31] MEDS: ASCORBIC ACID 500 MG TABLET PO SCH (11:14)
[2021-08-31 12:00] VITALS: BP 105/75
[2021-08-31 16:00] VITALS: BP 93/52
[2021-08-31] MEDS: ENOXAPARIN 40MG/0.4ML SYR SUBCUT SCH (17:43)
[2021-08-31 20:00] VITALS: BP 98/54
[2021-09-01] VITALS: BP 96/52
[2021-09-01 04:00] VITALS: BP 99/50
[2021-09-01 08:00] VITALS: BP 105/67
[2021-09-01] MEDS: ASCORBIC ACID 500 MG TABLET PO SCH (09:45)
[2021-09-01] MEDS: DOCUSATE SODIUM 250MG CAPSULE PO SCH (09:45)
[2021-09-01] MEDS: LEVETIRACETAM 500MG TABLET PO SCH ×2 (09:45→22:07)
[2021-09-01] MEDS: ZINC SULFATE 220 MG ( 50 ) CAPSULE PO SCH (09:46)
[2021-09-01 12:00] VITALS: BP 96/69
[2021-09-01 16:00] VITALS: BP 97/56
[2021-09-01] MEDS: ENOXAPARIN 40MG/0.4ML SYR SUBCUT SCH (17:41)
[2021-09-01 20:00] VITALS: BP 92/50
[2021-09-02] VITALS: BP 95/56
[2021-09-02 04:00] VITALS: BP 120/63
[2021-09-02 08:00] VITALS: BP 95/60
[2021-09-02 08:02] LABS: BASOPHILS % 0.3 % (0.0-2.0); CHLORIDE 104 mEq/L (98-107); EOSINOPHILS % 2.5 % (0.0-5.0); HEMATOCRIT. 39.6 % (42.0-52.0); HEMOGLOBIN. 13.3 g/dL (14.0-18.0); LYMPHOCYTES % 31.1 % (20.0-50.0); MEAN CORPUSCULAR HEMOGLOBIN 28.5 pg (28.0-32.0); MEAN CORPUSCULAR VOLUME 85.2 fL (80.0-94.0); MEAN PLATELET VOLUME 8.8 fl (7.4-10.4); NEUTROPHILS % 56.1 % (40.0-76.0); PLATELET 170 x1000/uL (130-400); RED BLOOD CELL COUNT 4.65 mill/uL (4.7-6.1); RED CELL DISTRIBUTION WIDTH 15.6 % (11.6-14.6)
[2021-09-02] MEDS: ZINC SULFATE 220 MG ( 50 ) CAPSULE PO SCH (09:17)
[2021-09-02] MEDS: ASCORBIC ACID 500 MG TABLET PO SCH (09:17)
[2021-09-02] MEDS: DOCUSATE SODIUM 250MG CAPSULE PO SCH (09:17)
[2021-09-02] MEDS: LEVETIRACETAM 500MG TABLET PO SCH ×2 (09:17→21:39)
[2021-09-02 12:00] VITALS: BP 107/62
[2021-09-02 16:00] VITALS: BP 108/69
[2021-09-02] MEDS: ENOXAPARIN 40MG/0.4ML SYR SUBCUT SCH (18:06)
[2021-09-02 20:00] VITALS: BP 95/53
[2021-09-03] VITALS: BP_SYST 100; BP_SYST 93; BP_DIAS 53; BP_DIAS 57
[2021-09-03 04:00] VITALS: BP 95/53
[2021-09-03 08:00] VITALS: BP 100/63
[2021-09-03] MEDS: LEVETIRACETAM 500MG TABLET PO SCH ×2 (09:01→22:12)
[2021-09-03] MEDS: ASCORBIC ACID 500 MG TABLET PO SCH (09:01)
[2021-09-03] MEDS: ZINC SULFATE 220 MG ( 50 ) CAPSULE PO SCH (09:01)
[2021-09-03 12:00] VITALS: BP 98/58
[2021-09-03 16:00] VITALS: BP 96/57
[2021-09-03] MEDS: ENOXAPARIN 40MG/0.4ML SYR SUBCUT SCH (19:02)
[2021-09-03 20:00] VITALS: BP 100/70
[2021-09-04] VITALS: BP 100/53
[2021-09-04 04:00] VITALS: BP 104/58
[2021-09-04 08:00] VITALS: BP 97/60
[2021-09-04] MEDS: LEVETIRACETAM 500MG TABLET PO SCH ×2 (09:51→22:11)
[2021-09-04] MEDS: ASCORBIC ACID 500 MG TABLET PO SCH (09:51)
[2021-09-04] MEDS: ZINC SULFATE 220 MG ( 50 ) CAPSULE PO SCH (09:51)
[2021-09-04 12:00] VITALS: BP 93/53
[2021-09-04 16:00] VITALS: BP 90/51
[2021-09-04] MEDS: ENOXAPARIN 40MG/0.4ML SYR SUBCUT SCH (17:00)
[2021-09-04 20:00] VITALS: BP 94/58
[2021-09-05] VITALS: BP 88/51
[2021-09-05 04:00] VITALS: BP 96/48
[2021-09-05 08:00] VITALS: BP 110/73
[2021-09-05] MEDS: LEVETIRACETAM 500MG TABLET PO SCH ×2 (08:17→22:55)
[2021-09-05] MEDS: ZINC SULFATE 220 MG ( 50 ) CAPSULE PO SCH (08:17)
[2021-09-05] MEDS: ASCORBIC ACID 500 MG TABLET PO SCH (08:17)
[2021-09-05 12:00] VITALS: BP 116/67
[2021-09-05 16:00] VITALS: BP 93/53
[2021-09-05] MEDS: ENOXAPARIN 40MG/0.4ML SYR SUBCUT SCH (18:17)
[2021-09-05 20:00] VITALS: BP 100/57
[2021-09-06] VITALS: BP 95/62
[2021-09-06 04:00] VITALS: BP 102/69
[2021-09-06 08:00] VITALS: BP 109/75
[2021-09-06] MEDS: ASCORBIC ACID 500 MG TABLET PO SCH (08:11)
[2021-09-06] MEDS: ZINC SULFATE 220 MG ( 50 ) CAPSULE PO SCH (08:11)
[2021-09-06] MEDS: LEVETIRACETAM 500MG TABLET PO SCH ×2 (08:11→21:40)
[2021-09-06 12:00] VITALS: BP 104/60
[2021-09-06 16:00] VITALS: BP 93/51
[2021-09-06] MEDS: ENOXAPARIN 40MG/0.4ML SYR SUBCUT SCH (18:43)
[2021-09-06 20:00] VITALS: BP 98/42
[2021-09-07] VITALS: BP 90/53
[2021-09-07 04:00] VITALS: BP 99/61
[2021-09-07 08:00] VITALS: BP 110/71
[2021-09-07] MEDS: ZINC SULFATE 220 MG ( 50 ) CAPSULE PO SCH (08:58)
[2021-09-07] MEDS: LEVETIRACETAM 500MG TABLET PO SCH ×2 (08:58→20:40)
[2021-09-07] MEDS: ASCORBIC ACID 500 MG TABLET PO SCH (08:58)
[2021-09-07 12:00] VITALS: BP 113/69
[2021-09-07 16:00] VITALS: BP 120/75
[2021-09-07] MEDS: ENOXAPARIN 40MG/0.4ML SYR SUBCUT SCH (17:40)
[2021-09-07 20:00] VITALS: BP 98/55
[2021-09-08] VITALS: BP 96/55
[2021-09-08 04:00] VITALS: BP 97/60
[2021-09-08 08:00] VITALS: BP 93/52
[2021-09-08] MEDS: ZINC SULFATE 220 MG ( 50 ) CAPSULE PO SCH (08:27)
[2021-09-08] MEDS: ASCORBIC ACID 500 MG TABLET PO SCH (08:27)
[2021-09-08] MEDS: LEVETIRACETAM 500MG TABLET PO SCH ×2 (08:27→22:42)
[2021-09-08 08:47] LABS: BASOPHILS % 0.3 % (0.0-2.0); EOSINOPHILS % 2.3 % (0.0-5.0); HEMATOCRIT. 40.5 % (42.0-52.0); HEMOGLOBIN. 13.8 g/dL (14.0-18.0); LYMPHOCYTES % 24.8 % (20.0-50.0); MEAN CORPUSCULAR HEMOGLOBIN 28.8 pg (28.0-32.0); MEAN CORPUSCULAR VOLUME 84.5 fL (80.0-94.0); MEAN PLATELET VOLUME 8.8 fl (7.4-10.4); MONOCYTES % 9.8 % (2.0-8.0); NEUTROPHILS % 62.8 % (40.0-76.0); PLATELET 166 x1000/uL (130-400); RED BLOOD CELL COUNT 4.79 mill/uL (4.7-6.1); RED CELL DISTRIBUTION WIDTH 15.4 % (11.6-14.6)
[2021-09-08 08:55] LABS: CHLORIDE 106 mEq/L (98-107)
[2021-09-08 12:00] VITALS: BP 96/59
[2021-09-08 16:00] VITALS: BP 98/56
[2021-09-08] MEDS: ENOXAPARIN 40MG/0.4ML SYR SUBCUT SCH (16:41)
[2021-09-08 20:00] VITALS: BP 95/53
[2021-09-09] VITALS: BP 91/55
[2021-09-09 04:00] VITALS: BP 93/59
[2021-09-09 08:00] VITALS: BP 126/73
[2021-09-09] MEDS: ASCORBIC ACID 500 MG TABLET PO SCH (09:28)
[2021-09-09] MEDS: LEVETIRACETAM 500MG TABLET PO SCH ×2 (09:28→23:11)
[2021-09-09] MEDS: ZINC SULFATE 220 MG ( 50 ) CAPSULE PO SCH (09:28)
[2021-09-09 12:00] VITALS: BP 94/50
[2021-09-09 16:00] VITALS: BP 95/54
[2021-09-09] MEDS: ENOXAPARIN 40MG/0.4ML SYR SUBCUT SCH (18:38)
[2021-09-09 20:00] VITALS: BP 90/51
[2021-09-10] VITALS: BP 96/60
[2021-09-10 04:00] VITALS: BP 98/56
[2021-09-10 08:00] VITALS: BP 101/61
[2021-09-10] MEDS: LEVETIRACETAM 500MG TABLET PO SCH ×2 (08:41→22:02)
[2021-09-10 12:00] VITALS: BP 90/57
[2021-09-10 16:00] VITALS: BP 99/56
[2021-09-10] MEDS: ENOXAPARIN 40MG/0.4ML SYR SUBCUT SCH (17:00)
[2021-09-10 20:00] VITALS: BP 91/51
[2021-09-11] VITALS: BP 105/69
[2021-09-11 04:00] VITALS: BP 99/64
[2021-09-11 08:00] VITALS: BP 97/61
[2021-09-11] MEDS: LEVETIRACETAM 500MG TABLET PO SCH ×2 (08:56→20:30)
[2021-09-11 12:00] VITALS: BP 96/61
[2021-09-11 16:00] VITALS: BP 90/54
[2021-09-11] MEDS: ENOXAPARIN 40MG/0.4ML SYR SUBCUT SCH (17:50)
[2021-09-11 20:00] VITALS: BP 92/55
[2021-09-12] VITALS: BP 94/56
[2021-09-12 04:00] VITALS: BP 96/54
[2021-09-12 08:00] VITALS: BP 89/58
[2021-09-12] MEDS: LEVETIRACETAM 500MG TABLET PO SCH ×2 (09:54→21:34)
[2021-09-12 12:00] VITALS: BP 95/55
[2021-09-12 16:00] VITALS: BP 90/50
[2021-09-12] MEDS: ENOXAPARIN 40MG/0.4ML SYR SUBCUT SCH (19:39)
[2021-09-12 20:00] VITALS: BP 89/53
[2021-09-13] VITALS: BP 102/63
[2021-09-13 08:00] VITALS: BP 94/51
[2021-09-13] MEDS: LEVETIRACETAM 500MG TABLET PO SCH ×2 (09:20→20:12)
[2021-09-13 12:00] VITALS: BP 95/54
[2021-09-13 13:04] LABS: BASOPHILS % 0.4 % (0.0-2.0); EOSINOPHILS % 2.9 % (0.0-5.0); HEMATOCRIT. 40.4 % (42.0-52.0); HEMOGLOBIN. 13.4 g/dL (14.0-18.0); MEAN CORPUSCULAR HEMOGLOBIN 28.5 pg (28.0-32.0); MEAN CORPUSCULAR VOLUME 86.1 fL (80.0-94.0); MEAN PLATELET VOLUME 8.9 fl (7.4-10.4); MONOCYTES % 10.8 % (2.0-8.0); NEUTROPHILS % 57.9 % (40.0-76.0); PLATELET 166 x1000/uL (130-400); RED BLOOD CELL COUNT 4.69 mill/uL (4.7-6.1); RED CELL DISTRIBUTION WIDTH 15.6 % (11.6-14.6)
[2021-09-13 13:41] LABS: CHLORIDE 106 mEq/L (98-107)
[2021-09-13 16:00] VITALS: BP 96/55
[2021-09-13] MEDS: ENOXAPARIN 40MG/0.4ML SYR SUBCUT SCH (17:14)
[2021-09-13 20:00] VITALS: BP 95/57
[2021-09-14] VITALS: BP 96/54
[2021-09-14 04:00] VITALS: BP 103/61
[2021-09-14 08:00] VITALS: BP 100/58
[2021-09-14] MEDS: LEVETIRACETAM 500MG TABLET PO SCH ×2 (09:03→21:17)
[2021-09-14 12:00] VITALS: BP 95/52
[2021-09-14 16:00] VITALS: BP 100/67
[2021-09-14] MEDS: ENOXAPARIN 40MG/0.4ML SYR SUBCUT SCH (18:40)
[2021-09-14 20:00] VITALS: BP 105/59
[2021-09-15 04:00] VITALS: BP 99/53
[2021-09-15 08:00] VITALS: BP 97/59
[2021-09-15] MEDS: LEVETIRACETAM 500MG TABLET PO SCH ×2 (08:38→21:34)
[2021-09-15 12:00] VITALS: BP 98/52
[2021-09-15 16:00] VITALS: BP 99/57
[2021-09-15] MEDS: ENOXAPARIN 40MG/0.4ML SYR SUBCUT SCH (17:11)
[2021-09-15 20:00] VITALS: BP 94/52
[2021-09-16] VITALS: BP 96/56
[2021-09-16 04:00] VITALS: BP 94/50
[2021-09-16 08:00] VITALS: BP 112/72
[2021-09-16] MEDS: LEVETIRACETAM 500MG TABLET PO SCH ×2 (08:53→20:34)
[2021-09-16 12:00] VITALS: BP 99/53
[2021-09-16 15:48] VITALS: BP 95/50
[2021-09-16] MEDS: ENOXAPARIN 40MG/0.4ML SYR SUBCUT SCH (17:30)
[2021-09-16 20:00] VITALS: BP 102/67
[2021-09-17] VITALS: BP 96/56
[2021-09-17 04:00] VITALS: BP 95/60
[2021-09-17 08:00] VITALS: BP 93/51
[2021-09-17 12:00] VITALS: BP 85/50
[2021-09-17 16:00] VITALS: BP 99/58
[2021-09-17] MEDS: ENOXAPARIN 40MG/0.4ML SYR SUBCUT SCH (16:18)
[2021-09-17 20:00] VITALS: BP 91/52
[2021-09-18] VITALS (7 sets, daily range): BP systolic 90–116; BP diastolic 50–69
[2021-09-18] MEDS: ENOXAPARIN 40MG/0.4ML SYR SUBCUT SCH (16:10)
== END 2021-09-18 23:58 | DRG 720 ==
LOC: ER 22:49 → SUPCPDRO 06-08 07:42 → ENRESERV 06-08 14:23 → CANRESERV 06-08 14:23 → ENRESERV 06-08 21:07 → 8WST 06-08 22:57 → 6EST 06-29 09:27 → UNDODISIN 08-30 15:55 → 6EST 08-30 17:16
PROVIDERS: ADMIT Internal Medicine Nephrology; ATTEND Internal Medicine Nephrology
DX: A41.9 Sepsis, unspecified organism (principal); G93.41 Metabolic encephalopathy; E87.0 Hyperosmolality and hypernatremia; M62.82 Rhabdomyolysis; D63.8 Anemia in other chronic diseases classified elsewhere; E87.1 Hypo-osmolality and hyponatremia; F33.9 Major depressive disorder, recurrent, unspecified; E87.8 Other disorders of electrolyte and fluid balance, not elsewhere classified; F03.90 Unspecified dementia, unspecified severity, without behavioral disturbance, psychotic disturbance, mood disturbance, and anxiety; Z20.822 Contact with and (suspected) exposure to COVID-19; G40.909 Epilepsy, unspecified, not intractable, without status epilepticus; K59.00 Constipation, unspecified; Z86.73 Personal history of transient ischemic attack (TIA), and cerebral infarction without residual deficits
CPT/HCPCS: 36415; 71045; 74018; 80048; 80053; 80202; 80305; 80320; 81003; 82550; 82553; 83605; 83735; 83880; 84100; 84145; 84484; 85025; 85027; 87426; 87804; 92610; 93005; 93306; 94640; 97110; 97116; 97162; 97164; 97165; 97168; 97530; 97535; 99291; A6261; J1650; J1953; J1956; J2060; J2270; J2543; J2930; J3370; J7030; J7040; A4315; G0480